=== PATIENT | female | born 1970 | race Caucasian/White ===

== ENCOUNTER → 2019-08-04 | Outpatient (CLI) | payer OTHER, SELFPAY ==
[2019-08-04 13:14] LABS: Cholesterol 199 mg/dL (200); Glucose 129 mg/dL (74-106); High Density Lipoprotein 40 mg/dL; T4 Free Direct 1.11 ng/dL (0.76-1.46); Thyroid Stim Hormone (TSH) 1.41 uIU/mL (0.358-3.74); Triglycerides 184 mg/dL; Very Low Density Lipoprotein 37 mg/dL (5-40)
== END | disposition home or self-care (01) ==
LOC: BFHLAB 08:04
PROVIDERS: Family Provider Family Medicine; PCP Family Medicine; Visit Provider Family Medicine
DX: F41.9 Anxiety disorder, unspecified (principal); F32.9 Major depressive disorder, single episode, unspecified; E66.9 Obesity, unspecified; Z13.1 Encounter for screening for diabetes mellitus; Z13.220 Encounter for screening for lipoid disorders
CPT/HCPCS: 36415; 80061; 82947; 84439; 84443

== ENCOUNTER 2019-11-11 07:13 | Day surgery (SDC) | payer OTHER, SELFPAY ==
--- NOTE | 2019-10-17 04:47 | HP_ITS ---
Intake Vital Signs 10/17/19 Height 5 ft 7 in 10/17/19 Weight: 235 lb 10/17/19 BMI 36.8 10/17/19 BP 152/85 H 10/17/19 Blood Pressure Location Rt brachial 10/17/19 Position Sitting 10/17/19 Respiration 18 10/17/19 Pulse 95 10/17/19 Pulse Source Monitor 10/17/19 Temp 97.7 F L 10/17/19 Temp Source Oral 10/17/19 Pulse Oximetry (%) 98 10/17/19 Oxygen Delivery Method room air Intake Visit Reasons: C-Scope Consult Chief Complaint: c-scope consult [employer] Required: No Is patient in pain?: No Allergies No Known Allergies Allergy (Unverified 10/17/19 15:52) Medications ibuprofen 200 mg capsule 200 mg PO Q6H PRN 10/17/19 [History Confirmed 10/17/19] PFSH Medical History Constipation (Acute) Diarrhea (Acute) Family history of colon cancer (Acute) Hemorrhoid (Acute) Rectal bleeding (Acute) Surgical History (Updated 10/17/19 @ 15:49 by Nubia Mart) History of (Acute) History of colonoscopy (Acute ~09/22/14) Family History (Updated 10/17/19 @ 15:50 by Nubia Mart) Mother Colon cancer Father Colon cancer Grandmother Colon cancer Grandfather CVA (cerebral vascular accident) Social History (Updated 10/17/19 @ 16:47 by Arnoldo Anton MD) Smoking Status: Never smoker alcohol intake: current alcohol intake frequency: a few times a month substance use type: does not use HPI HPI HPI: ALEXANDRO ESTRADA, is a 49 F who presents to the office today for HPI HPI Surgical H&P: Yes HPI: ALEXANDRO ESTRADA, is a 49 F who presents to the office today for surgical consultation regarding a personal history of intermittent rectal bleeding and a personal history of colon polyps and a strong family history of colon cancer Very pleasant 49-year-old female. 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 Recently the patient however is been doing elliptical and treadmill work and will have a feeling like her insides falling out with some bleeding on the tissue. She did have a colonoscopy 2013 done in [facility] and she was told there were polyps that were removed. She is not sure about the type or quantity. 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 She is suspecting that she has perhaps protruding hemorrhoids. The patient does note that she is overweight she is got a BMI of 36.8. She exercises routinely. Family history notable for mother had colon cancer. Her father had colon cancer and esophageal cancer and stomach cancer but he was a heavy tobacco user. Her paternal grandmother had colon cancer. She otherwise enjoys stable health. No current abdominal pain. No unexpected weight loss. No history of DVT. ROS General General: No weight change, appetite, fatigue, colon cancer, breast cancer or weakness HEENT HEENT: No difficulty swallowing, eye injury, eye surgery, swollen glands or hoarseness Endo Endocrine: No thyroid disease, diabetes mellitus, thyroid cancer, Hair loss, heat intolerance or cold intolerance Skin Skin: No rash or changing moles Breast Breast: No left breast lump, right breast lump, nipple discharge, breast pain, abnormal mammogram, abnormal US or breast enlargement Musc Musculoskeletal: No back problems, arthritis, rheumatoid arthritis, gout or joint pain Cardio Cardiovascular: No murmur, pacemaker, heart disease, atrial fibrillation, high blood pressure, heart attack, heart stent, palpitations, shortness of breat with exertion or chest pain Psych Psychiatric: No depression, anxiety or hearing voices Resp Respiratory: No shortness of breath, No sleep apnea, No cough, No COPD, No asthma, No emphysema, No wheezing Gastro Gastrointestinal: No abdominal pain, No nausea or vomiting, Yes diarrhea, Yes constipation, Yes blood in stool, No acid reflux, Yes hemorrhoids, No ulcers, No gallbladder problem, No black,tarry stools Timur Hematologic: No blood thinners, No blood disorders, No bleeding, No anemia, No blood clots Neuro Neurologic: No system reviewed and no additional complaints, except as docu, No as per HPI, No abnormal walking, No abnormal hearing, No abnormal movements, No abnormal speech, No behavioral changes, No burning sensations, No confusion, No seizure-like activity, No unsteadiness, No dizziness, No localized weakness, No frequent falls, No headache(s), No lack of coordination, No loss of vision, No memory loss, No numbness, No other visual disturbances, No radiating pain, No restless legs, No sensory deficit, No fainting, No tingling, No tremor(s), No weakness, No other Exam Const General: cooperative, healthy appearing, comfortable, no acute distress Nutritional Appearance: obese Orientation: alert, awake HENMT Head: normal to inspection Chest Breast Palpation: No nipple discharge Resp Effort & Inspection: normal respiratory effort Auscultation: clear to auscultation bilaterally Cardio Rate: regular rate Rhythm: regular rhythm Heart Sounds: no murmurs GI Palpation: soft, no hepatosplenomegaly Auscultation: normal bowel sounds Skin General: no rashes or lesions noted Neuro Cognition: normal cognition Extrem General: no calf tenderness bilaterally Psych Affect: normal affect Assessment & Plan Problems 1. Personal history of colonic polyps Z86.010 2. Family history of colon cancer in mother Z80.0 3. Family history of colon cancer in father Z80.0 Plan Family history of colon cancer in both parents as well as a paternal grandmother. Personal history of colon polyps. Some intermittent rectal bleeding. 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 Possible symptomatic hemorrhoids. I discussed treatment options with the patient. She states that she is an extraordinary abnormal gag reflex. We will try OsmoPrep. If not that possibly MiraLAX split prep. She has had an opportunity to ask and have questions answered as we have discussed the technique, benefit, risk, alternatives. We will schedule procedure at her discretion. Very careful perianal rectal inspection will be pursued in case further definitive treatment would be required. In addition the patient will try to release surgical information from her fistula surgery that was performed in [facility] I appreciate the opportunity of assisting with her surgical care Cc: Dr. Seth Anton M.D., F.A.C.S. Coding Level of Care Code Off vis,new,level 3 Diagnoses Personal history of colonic polyps Z86.010 Family history of colon cancer in mother Z80.0 Family history of colon cancer in father Z80.0 10/17/19 2934 <Electronically signed by Arnoldo giron MD> Date _ Arnoldo Anton MD I have re-examined the patient. There are no clinical changes since date of exam.
[2019-10-17 15:51] VITALS: BMI 36.8
[2019-11-11 07:30] VITALS: BP 145/70; PULSE 96; RESP 15; TEMP 36.8; O2SAT 99; BMI 36.3
[2019-11-11] MEDS: Lactated Ringers 1,000 ML 100 ML IV (07:41)
[2019-11-11 08:54] VITALS: BP 137/69; BP 145/70; PULSE 99; RESP 14; TEMP 36.7; O2SAT 97
[2019-11-11 08:55] VITALS: BP 143/65; BP 145/70; PULSE 100; RESP 16; O2SAT 98
--- NOTE | 2019-11-11 08:55 | OP.COLON_ITS ---
Patient Name: Whit Jon Procedure Date: 11/11/2019 8:31 AM Date of : 1970 Age: 49 Procedure: Colonoscopy Indications: High risk colon cancer surveillance: Personal history of colonic polyps Providers: Arnoldo Anton MD Referring MD: Seth Resendiz Medicines: See the Anesthesia note for documentation of the administered medications Patient Profile: Last Colonoscopy: September 2014. Complications: No immediate complications. Procedure: Pre-Anesthesia Assessment: - Prior to the procedure, a History and Physical was performed, and patient medications and allergies were reviewed. The patient's tolerance of previous anesthesia was also reviewed. The risks and benefits of the procedure and the sedation options and risks were discussed with the patient. All questions were answered, and informed consent was obtained. Prior Anticoagulants: The patient has taken no previous anticoagulant or antiplatelet agents. ASA Grade Assessment: II - A patient with mild systemic disease. After reviewing the risks and benefits, the patient was deemed in satisfactory condition to undergo the procedure. After I obtained informed consent, the scope was passed under direct vision. Throughout the procedure, the patient's blood pressure, pulse, and oxygen saturations were monitored continuously. The colonoscope was introduced through the anus and advanced to the cecum, identified by appendiceal orifice and ileocecal valve. The colonoscopy was performed without difficulty. The patient tolerated the procedure well. The quality of the bowel preparation was fair. The ileocecal valve and the appendiceal orifice were photographed. Scope In: 8:34:42 AM Scope Withdrawal Time 0 hours 7 minutes 4 seconds Scope Out: 8:47:30 AM Total Procedure Duration Time 0 hours 12 minutes 48 seconds Findings: The digital rectal exam findings include anal fissure and internal hemorrhoids that prolapse with straining, but spontaneously regress to the resting position (Grade II). Pertinent negatives include normal sphincter tone. The colon (entire examined portion) appeared normal. Impression: - Preparation of the colon was fair. - Anterior Anal fissure seemingly healed with some scar tissue, no bleeding Internal hemorrhoids that prolapse with straining, but spontaneously regress to the resting position (Grade II) found on digital rectal exam. - The entire examined colon is normal. - No specimens collected. Recommendation: - Discharge patient to home. - Resume previous diet. - Continue present medications. - Await pathology results. - Repeat colonoscopy in 5 years for surveillance. Procedure Code(s): --- Professional --- 33411, Colonoscopy, flexible; diagnostic, including collection of specimen(s) by brushing or washing, when performed (separate procedure) Diagnosis Code(s): --- Professional --- Z86.010, Personal history of colonic polyps K64.1, Second degree hemorrhoids K60.2, Anal fissure, unspecified CPT copyright 2017 [employer]. All rights reserved. The codes documented in this report are preliminary and upon remote inpatient coder review may be revised to meet current compliance requirements. Arnoldo Anton MD 11/11/2019 8:54:40 AM This report has been signed electronically. Number of Addenda: 0 Note Initiated On: 11/11/2019 8:31 AM
--- NOTE | 2019-11-11 08:55 | OP.CCLET_ITS ---
11/11/2019 Seth Resendiz Re : Colonoscopy procedure for Whit Gordonr Martín This procedure was performed on Monday, November 11, 2019. My impressions and recommendations are as follows: Impressions : - Preparation of the colon was fair. - Anterior Anal fissure seemingly healed with some scar tissue, no bleeding Internal hemorrhoids that prolapse with straining, but spontaneously regress to the resting position (Grade II) found on digital rectal exam. - The entire examined colon is normal. - No specimens collected. Recommendations : - Discharge patient to home. - Resume previous diet. - Continue present medications. - Await pathology results. - Repeat colonoscopy in 5 years for surveillance. My findings are described in the full procedure note, which is enclosed. If I can be of further assistance, please feel free to contact me at Doctor phone number(s): Work: . Sincerely, Arnoldo Anton MD 11/11/2019 8:54:40 AM This report has been signed electronically.
[2019-11-11 09:00] VITALS: BP 130/72; BP 145/70; PULSE 92; RESP 16; O2SAT 97
[2019-11-11 09:01] VITALS: BP 136/82; BP 145/70; PULSE 89; RESP 16; TEMP 36.1; O2SAT 98
[2019-11-11 09:40] VITALS: BP 145/70
== END 2019-11-11 09:40 | disposition home or self-care (01) ==
LOC: EN 07:14 → AC 07:17
PROVIDERS: Family Provider Family Medicine; PCP Family Medicine; Referring Provider Family Medicine; Visit Provider Surgery
PROC: 0DJD8ZZ Inspection of Lower Intestinal Tract, Via Natural or Artificial Opening Endoscopic (ICD-10-PCS; CPT 45378; principal; 2019-11-11 08:10)
DX: Z12.11 Encounter for screening for malignant neoplasm of colon (principal); K60.2 Anal fissure, unspecified; K64.1 Second degree hemorrhoids; Z80.0 Family history of malignant neoplasm of digestive organs; Z86.010 Personal history of colon polyps; E66.9 Obesity, unspecified; Z68.36 Body mass index [BMI] 36.0-36.9, adult
CPT/HCPCS: 45378; J7120; J2405

== ENCOUNTER → 2021-06-19 16:06 | Outpatient (CLI) | payer OTHER, SELFPAY ==
--- NOTE | 2021-06-19 16:13 | US_ITS ---
STUDY: THYROID ULTRASOUND REASON FOR EXAM: Female, 51 years old. THYROMEGALY TECHNIQUE: Ultrasound evaluation of the thyroid was performed with real-time and static razo-scale imaging. COMPARISON: None. FINDINGS: RIGHT LOBE: The right lobe of the thyroid gland measures 6.9 x 2.0 x 2.2 cm. There is a heterogeneous echotexture. 1.5 x 1.2 x 0.8 cm mixed cystic and solid nodule. 1.1 x 0.8 x 0.4 cm solid hypoechoic nodule. 0.8 x 0.8 x 0.4 cm cystic nodule. 1.1 x 1.0 x 0.6 cm cyst. All nodules have regular margins and perivalvular nodular vascularity. LEFT LOBE: The left lobe of the thyroid gland measures 6.5 x 1.9 x 2.2 cm. There is a heterogeneous echotexture. 1.2 x 0.8 x 0.8 cm hypoechoic solid nodule. 0.5 x 0.5 x 0.4 cm cystic nodule. 0.7 x 0.7 x 0.5 cm cystic nodule. 0.9 X 0.8 x 0.7 cm cystic nodule. All nodules have regular margins and a nodular vascularity. ISTHMUS: The isthmus measures 5 mm. US/Thyroid IMPRESSION: Thyromegaly. TI-RADS 3 nodule in the right thyroid lobe measures up to 1.5 cm. Follow-up ultrasound in one year. Electronically Signed: Paresh Dumont MD at 23:28 EDT Tel , Service support ,
== END ==
PROVIDERS: PCP Family Medicine; Referring Provider Family Medicine; Visit Provider Family Medicine
DX: E04.9 Nontoxic goiter, unspecified (principal)
CPT/HCPCS: 76536

== ENCOUNTER → 2021-07-31 | Outpatient (CLI) | payer OTHER, SELFPAY | END | disposition home or self-care (01) | LOC: LABSPEC 08-01 06:39 | PROVIDERS: PCP Family Medicine; Referring Provider Family Medicine; Visit Provider Family Medicine | DX: U07.1 COVID-19 (principal) | CPT/HCPCS: 87635; U0005; U0003 ==

== ENCOUNTER → 2022-04-15 | Outpatient (CLI) | payer OTHER, SELFPAY ==
[2022-04-22 10:16] LABS: Age Gdln ACOG Testing 30-65 (.); HPV Genotype 16, Aptima Negative (Negative)
[2022-04-22 10:31] LABS: HPV APTIMA, High Risk Positive (Negative); HPV Genotype 18,45 Aptima Negative (Negative)
[2022-05-07 20:26] LABS: HPV Reflexed? YES, CHARGE PATIENT
== END | disposition home or self-care (01) ==
LOC: LABSPEC 14:56
PROVIDERS: PCP Family Medicine; Referring Provider Family Medicine; Visit Provider Family Medicine
DX: Z12.4 Encounter for screening for malignant neoplasm of cervix (principal)
CPT/HCPCS: 87624; 88175; G0145

== ENCOUNTER → 2022-04-23 | Outpatient (CLI) | payer OTHER, SELFPAY ==
--- NOTE | 2022-04-23 15:03 | US_ITS ---
STUDY: ULTRASOUND OF THE FEMALE PELVIS - COMPLETE REASON FOR EXAM: Female, 52 years old.. Enlarged uterus. Heavy menses for years. LMP: 04/17/2022. TECHNIQUE: Transabdominal TECHNICAL QUALITY: Adequate. COMPARISON: None. FINDINGS: The uterus is anteverted and is in a midline position. The uterus measures 10.4 x 6.0 x 4.2 cm. Normal uterine cervix. The endometrium measures 0.4 mm in thickness, and is hyperechoic. There is no demonstrated endometrial mass. There is no demonstrated myometrial mass. I.U.D. - The patient does not have an I.U.D. The right ovary is visualized. The right ovary measures 2.6 x 3.2 x 2.0 cm. There is no right ovarian cyst or ovarian mass. There is no visualized right adnexal mass or complex lesion. There is normal arterial and normal venous vascularity. The left ovary is visualized. The left ovary measures 2.9 x 2.8 x 1.3 cm. There is no left ovarian cyst or ovarian mass. There is no visualized left adnexal mass or complex lesion. There is normal arterial and normal venous vascularity. There is no fluid in the cul-de-sac. The pre void volume of the bladder was 573 ml. The urinary bladder appears grossly normal. Polycystic ovary disease: No. US/Pelvic (Non ) IMPRESSION: Normal female pelvis. Electronically Signed: Jorje Martin DO at 18:51 EDT ,
== END | disposition home or self-care (01) ==
PROVIDERS: PCP Family Medicine; Visit Provider Family Medicine
DX: N85.2 Hypertrophy of uterus (principal)
CPT/HCPCS: 76856

== ENCOUNTER → 2023-03-23 | Outpatient (CLI) | payer OTHER, SELFPAY ==
[2023-03-23 12:22] LABS: Absolute Lymphocyte Count 2.21 X10^3/uL (0.83-4.51); Absolute Neutrophil Count 5.6 X10^3/uL (2.0-7.7); Basophil# 0.05 X10^3/uL; Basophil% 0.6 % (0-1); Eosinophils% 1.2 % (0-5); Hematocrit 40.3 % (37-47); Hemoglobin 12.3 g/dL (12.0-15.0); Lymphocyte # 2.21 X10^3/ul (0.83-4.51); Lymphocyte % 25.7 % (19-41); Mean Corp Hgb Conc 30.5 g/dL (32-36); Mean Corpuscular Hgb 25.4 pg (27.0-32.0); Mean Corpuscular Volume 83.1 fL (81-99); Mean Platelet Vol. 9.3 fl (6.2-12.0); Monocyte# 0.55 X10^3/uL; Monocyte% 6.4 % (0-10); NRBC Flagged by Analyzer 0 % (0-5); Neutrophil # 5.64 X10^3/uL (2.7-7.7); Neutrophil % 65.5 % (47-70); Platelet Count 370 K/mm3 (150-450); RBC Distribution Width CV 14.3 % (11.6-14.6); RBC Distribution Width SD 43.2 fl (35.1-43.9); Red Blood Count 4.85 M/mm3 (4.2-5.4); White Blood Count 8.6 K/mm3 (4.4-11.0)
[2023-03-23 13:03] LABS: Hemoglobin A1c 7.7 % (3.8-5.6)
[2023-03-23 13:18] LABS: Microalbumin,Random Urine 26.3 mg/L (NO RANGE EST.); Microalbumin:Creatinine Ratio 8.8 mg/g CRE (<30 mg/g CRE)
[2023-03-23 13:35] LABS: ALB/GLOB Ratio 0.8 RATIO (0.9-2.4); AST(SGOT) 26 U/L (15-37); Alanine Aminotransfer ALT/SGPT 28 U/L (13-56); Albumin, Serum 3.3 g/dL (3.2-5.0); Alkaline Phosphatase 104 U/L (45-117); Anion Gap 7 (5-15); BUN 10 mg/dL (7-18); BUN/Creat Ratio 14.1 RATIO (10-20); Calcium,Total 9.3 mg/dL (8.5-10.1); Chloride 104 mmol/L (98-107); Cholesterol 204 mg/dL (200); Creatinine, Serum 0.71 mg/dL (0.55-1.02); EST Glomerular Filtration Rate 92 mL/min (>60); Est Glom Filt Rate - Afr Amer 111 mL/min (>60); Globulin 4.2 g/dL (2.2-4.2); Glucose 168 mg/dL (74-106); High Density Lipoprotein 42 mg/dL; Potassium 4.1 mmol/L (3.5-5.1); Protein, Total 7.5 g/dL (6.4-8.2); Sodium Level 137 mmol/L (136-145); Thyroid Stim Hormone (TSH) 1.24 uIU/mL (0.358-3.74); Triglycerides 148 mg/dL; Very Low Density Lipoprotein 30 mg/dL (5-40)
== END | disposition home or self-care (01) ==
LOC: BFHLAB 08:41
PROVIDERS: Obstetrics & Gynecology; PCP Family Medicine; Referring Provider Family Medicine; Visit Provider Family Medicine
DX: I10 Essential (primary) hypertension (principal); E11.9 Type 2 diabetes mellitus without complications; E04.2 Nontoxic multinodular goiter; N92.1 Excessive and frequent menstruation with irregular cycle; N93.9 Abnormal uterine and vaginal bleeding, unspecified
CPT/HCPCS: 36415; 80053; 80061; 82043; 82570; 83036; 84443; 85025

== ENCOUNTER → 2023-03-30 | Outpatient (CLI) | payer OTHER, SELFPAY ==
--- NOTE | 2023-03-30 | EMB_PTH ---
PATIENT: ALEXANDRO ESTRADA LOC: [facility] U#:[id number] AGE/SX: 53/F ROOM: RE03/30/[address]: Dr. Danna Wood MD : 1970 BED: DIS: 03/30/2023 SPEC #: [id number] RECD: 03/30/23 13:00 STATUS: RADHA ABDULLAHI #: [id number] RIOS: 03/30/23 00:[address]: Danna Wood DEPT: SURGICAL PATHOLOGY RECD BY: Angus Nolasco ENTERED: 03/30/23 13:00 SP TYPE: ENDOM BX/C LIO DR: Dr. India Samuel MD Tissues: Endometrium, NOS Procedures: Surgery Specimen Level IV HEADER OPERATION: Endometrial biopsy PRE-OP DIAGNOSIS: Abnormal uterine bleeding TISSUE SUBMITTED: Endometrial lining MICROSCOPIC DIAGNOSIS Endometrium, biopsy: Secretory endometrium. Focal benign stromal hyperplasia. AM:reina 03/31/2023 MICROSCOPIC DESCRIPTION Slides are reviewed. GROSS DESCRIPTION Received is one container labeled with the patient's name and not further designated. The specimen consists of multiple irregular fragments of pink-cameron soft tissue that in aggregate measure 2.0 x 1.0 x 0.1 cm. The specimen is totally submitted in one cassette. / AM:reina 03/30/2023 TC:5 CPT: 16800
== END | disposition home or self-care (01) ==
LOC: LABSPEC 11:46
PROVIDERS: PCP Family Medicine; Visit Provider Obstetrics & Gynecology
DX: N85.00 Endometrial hyperplasia, unspecified (principal)
CPT/HCPCS: 88305

== ENCOUNTER → 2023-05-07 | Outpatient (CLI) | payer OTHER, SELFPAY ==
--- NOTE | 2023-05-07 14:24 | BI_ITS ---
MAMMOGRAPHY - BILATERAL SCREENING REASON FOR EXAM: Female, 53 years old. Routine annual screening examination. PERTINENT HISTORY: Non-contributory. TECHNIQUE: Digital bilateral breast bobo (3D mammographic acquisition) in the CC and MLO projections. 2-D mediolateral oblique (MLO) and craniocaudad (CC) views of both breasts were obtained. CAD: Full Field Digital Mammography with Computer Added Detection was performed. COMPARISON: None. Baseline examination. FINDINGS: Breast Composition: There are scattered areas of fibroglandular density. There are no dominant masses or suspicious calcifications. No other significant abnormalities are identified. BI/SCRN MAMM (CAD)W/BOBO BILAT IMPRESSION: Negative screening mammogram. Yearly followup mammogram recommended. (A) ASSESSMENT CATEGORY: BIRADS Category 1: Negative. A letter regarding these results will be sent to the patient by the facility within 30 days. Approximately 10% of breast cancers are not detected by mammography. A normal mammogram should not delay biopsy of a clinically suspicious abnormality. [id number] Electronically Signed: Corey Au MD at 15:18 EDT ,
== END | disposition home or self-care (01) ==
LOC: OPBI 14:23
PROVIDERS: PCP Family Medicine; Referring Provider Family Medicine; Visit Provider Family Medicine
DX: Z12.31 Encounter for screening mammogram for malignant neoplasm of breast (principal)
CPT/HCPCS: 77063; 77067

== ENCOUNTER → 2023-05-14 | Outpatient (CLI) | payer OTHER, SELFPAY ==
[2023-05-20 15:08] LABS: HPV APTIMA, High Risk Negative (Negative)
== END | disposition home or self-care (01) ==
PROVIDERS: PCP Family Medicine; Visit Provider Obstetrics & Gynecology
DX: Z12.4 Encounter for screening for malignant neoplasm of cervix (principal)
CPT/HCPCS: 87624; 88175; G0145

== ENCOUNTER → 2024-05-12 | Outpatient (CLI) | payer OTHER, SELFPAY ==
--- NOTE | 2024-05-12 15:04 | BI_ITS ---
MAMMOGRAPHY - BILATERAL SCREENING REASON FOR EXAM: Female, 54 years old. Routine annual screening examination. PERTINENT HISTORY: Non-contributory. TECHNIQUE: Digital bilateral breast bobo (3D mammographic acquisition) in the CC and MLO projections. 2-D mediolateral oblique (MLO) and craniocaudad (CC) views of both breasts were obtained. CAD: Full Field Digital Mammography with Computer Added Detection was performed. COMPARISON: Comparison is made with prior study dated May 07, 2023. FINDINGS: Breast Composition: There are scattered areas of fibroglandular density. There are no dominant masses or suspicious calcifications. No other significant abnormalities are identified. There has been no significant change since the prior study. BI/SCRN MAMM (CAD)W/BOBO BILAT IMPRESSION: Stable bilateral screening mammogram. Yearly follow-up mammogram recommended. (A) ASSESSMENT CATEGORY: BIRADS Category 1: Negative. A letter regarding these results will be sent to the patient by the facility within 30 days. Approximately 10% of breast cancers are not detected by mammography. A normal mammogram should not delay biopsy of a clinically suspicious abnormality. [id number] Electronically Signed: Corey Au MD at 8:23 EDT ,
== END | disposition home or self-care (01) ==
LOC: OPBI 15:02
PROVIDERS: PCP Family Medicine; Referring Provider Family Medicine; Visit Provider Family Medicine
DX: Z12.31 Encounter for screening mammogram for malignant neoplasm of breast (principal)
CPT/HCPCS: 77063; 77067

== ENCOUNTER → 2024-08-03 | Outpatient (CLI) | payer OTHER, SELFPAY ==
--- OUTSIDE RECORDS SUMMARY | 2024-08-03 11:30 | XMS RPT_ITS | CCD ---
Author Organization [facility] Care Team Providers Care Salon/Spa Manager Name Role Phone Dhaval Sandoval DO Ra Primary Care Provider Allergies Allergy Classification Reported Allergen(s) Allergy Type Date of Onset Reaction(s) Facility (2 sources) environmental [Other] Propensity to adverse reactions [facility] Work Phone: Medications Completed/Discontinued Medications Medication Drug Class(es) Dates Sig (Normalized) Sig (Original) ibuprofen 800 mg oral tablet (2 sources) Nonsteroidal Anti-inflammatory Drug Start: 10-01-2012 take 1 tablet by mouth every eight hours as needed ibuprofen (MOTRIN) 800 mg tablet Take 1 tablet by mouth every 8 hours as needed (migraine). FOR PAIN. TAKE WITH FOOD. 0 10/01/2012 Active Comment on above: Take 1 tablet by austyn th every 8 hours as needed (migraine). FOR PAIN. TAKE WITH FOOD. ketorolac tromethamine 10 mg oral tablet (2 sources) Nonsteroidal Anti-inflammatory Drug, Cyclooxygenase Inhibitor Start: 06-05-2018 take 1 tablet by mouth every six hours as needed for pain ketorolac (TORADOL) 10 mg tablet Indications: Other migraine without status migrainosus, intractable Take 1 tablet by mouth every 6 hours as needed for Pain. 10 tablet 3 06/05/2018 Active Comment on above: Take 1 tablet by austyn th every 6 hours as needed for Pain. Problems Active Problems Problem Classification Problem Date Documented Da te Episodic/Chronic Disorders of lipid metabolism (2 sources) Mixed hyperlipidemia; Translations: [Mixed hyperlipidemia] Onset: 11-27-2005 11-27-2005 Chronic Headache; including migraine (6 sources) Migraine; Translations: [Migraine, unspecified, not intractable, without status migrainosus] Onset: 06-07-2018 03-02-2008 Chronic Mood disorders (2 sources) Recurrent major depressive episodes; Translations: [Major depressive disorder, recurrent, unspecified] 03-02-2008 Chronic Other nutritional; endocrine; and metabolic disorders (2 sources) Body mass index 40+ - severely obese; Translations: [Morbid (severe) obesity due to excess calories] 02-05-2018 Chronic Other nutritional; endocrine; and metabolic disorders (2 sources) Body mass index 30+ - obesity; Translations: [Obesity, unspecified] Onset: 02-07-2013 02-07-2013 Chronic Other nutritional; endocrine; and metabolic disorders (2 sources) Obese class II; Translations: [Obesity, unspecified] Onset: 06-07-2018 06-07-2018 Chronic Other upper respiratory disease (2 sources) Allergic rhinitis; Translations: [Other allergic rhinitis] 03-02-2008 Chronic Past or Other Problems Problem Classification Problem Date Documented Da te Episodic/Chronic Anal and rectal conditions (2 sources) Anal fistula; Translations: [Anal fistula] Onset: 07-17-2014 07-17-2014 Episodic Conditions associated with dizziness or vertigo (2 sources) Benign paroxysmal positional vertigo; Translations: [Benign paroxysmal vertigo, unspecified ear] Onset: 11-07-2015 11-07-2015 Episodic Diabetes mellitus without complication (2 sources) Impaired fasting glycemia; Translations: [Impaired fasting glucose] Onset: 06-07-2018 06-07-2018 Episodic Results Test Name Value Interpretation Reference Range Nadine Watkins 04-24-2022 [facility] HNO ID: [id number] Author: Mammography Coordinator Service: ? Author Type: Physician Type: Letter Filed: 04/28/2022 11:34 PM Note Text: April 24, 2022 PID: [id number] Whit Jon [id number] [place] [address] Dear Ms. Jon, We are pleased to inform you that the results of your recent breast imaging exam on 04/24/2022 are normal. Early detection of cancer is very important. We also understand recommendations regarding breast cancer screening are controversial. Please discuss with your primary care provider which strategy is best for you and whether a mammogram is right for you. Your imaging studies and report will be kept on file at [facility] as part of your permanent medical record and are available for your continuing care. Thank you for allowing us to help in meeting your health care needs. Sincerely, Dr. Pack Interpreting Radiologist [facility] (Normal over 40) Normal [facility] SCREENING W TOMOon 04-24 MANNY SCREENING W BOBO * * *Final Report* * * DATE OF EXAM: Apr 24 2022 3:01PM [id number] - MANNY SCREENING W BOBO / PROCEDURE REASON: screening * * * * Physician Interpretation * * * * RESULT: #[id number] - MANNY SCREENING W BOBO BILATERAL DIGITAL SCREENING MAMMOGRAM TOMOSYNTHESIS WITH CAD: 04/24/2022 HISTORY: Screening /Screening Mammogram-Patient reports NO symptoms. /priors available for comparison. RESULT: TECHNIQUE: The study was acquired using full field digital technology and interpreted from soft copy. Digital Breast Tomosynthesis (DBT) images were obtained and used to assist in the interpretation of this examination. Current study was also evaluated with a Computer Aided Detection (CAD). Comparison is made to exams dated: 03/05/2021 mammogram, 02/10/2020 mammogram - [facility], 11/02/2018 mammogram, and 10/27/2017 mammogram - [facility]. There are scattered fibroglandular elements in both breasts. No significant masses, calcifications, or other findings are seen in either breast. There has been no significant interval change. IMPRESSION: NEGATIVE There is no mammographic evidence of malignancy. A 1 year screening mammogram is recommended. Candy Pack M.D., jr/penrad:04/24/2022 17:59:14 Vending Attendant(s): Lois Perez, [facility] letter sent: Normal over 40 Mammogram BI-RADS: 1 Negative Multiple national specialty organizations have released breast cancer screening guidelines for women at average risk for developing breast cancer - guidelines that are based on both evidence and opinion, yet differ on when to start and how often to screen for breast cancer. With representation from Breast Imaging, Internal Medicine, Women's Health, Family Medicine, and Medical/Surgical Oncology, the [facility] has carefully reviewed the data and reached the following consensus: 1) All women should engage in shared decision-making with their providers to decide when to start and how often to screen; 2) All women should have the opportunity to start screening mammography at age 40; 3) For women ages 45-55, we recommend annual screening mammograms; 4) For women ages 55 and over, we support both the transition from an annual to a biennial interval if this aligns more with patient's values and preferences, or continuation with annual screening; 5) All women should discuss with their providers when to stop screening mammograms. Service Shop Foreman: Xenia Transcribe Date/Time: Apr 24 2022 2:48P Dictated by: CANDY PACK MD This examination was interpreted and the report reviewed and electronically signed by: CANDY PACK MD on Apr 24 2022 5:59PM EST [id number] Normal [facility] ic Encounters Encounter Date Encounter Type Care Provider Facility Start: 04-24-2022 End: 04-24-2022 Subsequent hospital visit by physician Screen Mammo On License Of [facility] Mammogram Start: 04-24-2022 Documentation procedure Mammog sylvia Coordinator [facility] Start: 04-24-2022 Letter encounter Mammography Coordinator [facility] Department Start: 06-07-2018 Patient encounter status Screen Wstr [facility] Work Phone: Procedures Date Procedure Procedure Detail Performing Clinician Start: 04-24-2022 MANNY SCREENING W BOBO Cc f Provider Start: 04-24-2022 Mammography Screen Wst r Plan of Treatment Date Care Activity Detail Author Start: 04-24-2023 Mammography MAMMOGRAM [facility] Start: 10-27-2022 Urine microalbumin profile DTA P,TDAP,TD (3 - Td or Tdap) [facility] Start: 06-12-2022 Influenza vaccination INFLUENZA (#1) [facility] Start: 06-19-2021 HPV TESTING HPV TESTING [facility] Start: 06-19-2021 PAP TESTING PAP TESTING [facility] Start: 05-29-2021 DIABET[facility]CREEN [facility] Start: 2021 SHINGRIX VACCINE (1 of 2) SHINGRIX V ACCINE (1 of 2) [facility] Start: 10-02-2017 LIPID SCREEN LIPID SCREEN [facility] Start: 01-25-2016 COLOGUARD (FIT-DNA) COLOGUARD (FIT-D NA) [facility] Start: 01-25-2016 Colonoscopy COLONOSCOPY [facility] Start: 01-25-2016 COLORECTAL CANCER SCREENING COLORECTAL CANCER SCREENING [facility] Start: 01-25-[address] [facility] Start: 01-25-2016 FECAL OCCULT BLOOD FECAL OCCULT BLOO D [facility] Start: 01-25-2016 SIGMOIDOSCOPY SIGMOIDOSCOPY [facility] Start: 1989 HEPATITIS C SCREENING HEPATITIS C SC REENING [facility] Start: 1989 HIV SCREENING HIV SCREENING [facility] Start: 1971 COVID-19 VACCINE (#1) COVID-19 VACCI NE (#1) [facility] Immunizations Immunization Date Immunization Notes Care Provider Fa cility 10-27-2012 tetanus toxoid, redu mohit diphtheria toxoid, and acellular pertussis vaccine, adsorbed Screen [facility] Work Phone: 05-17-2002 diphtheria and tetan us toxoids, adsorbed for pediatric use Screen [facility] Work Phone: Payers Date Payer Category Payer Unknown MMO MMO [employer] [id number] 2014-Present [phone] [address] [place] [address] PPO [id number] Social History Date Type Detail Facility Tobacco smoking stat us VAIS Never smoked tobacco [facility] Start: 11-02-2018 Alcohol intake Current drinke r of alcohol (finding) [facility] Start: 03-02-2008 History SDOH Alcohol Comment 1-2 times per month [facility] Start: 1970 Sex Assigned At Female C [facility] Start: 04-14-2022 End: 04-24-2022 Exposure to SARS-CoV-2 (event) Not sure [facility] Note 04-24-2022 Letter - Mammography Coordinator - 04/24/2022 5:59 PM EDT Note Date & Type Note Facility 04-24-2022 Miscellaneous Notes April 24, 2022 PID: [id number] Whit Jon [address] [place] [address] Dear Ms. Jon, We are pleased to inform you that the results of your recent breast imaging exam on 04/24/2022 are normal. Early detection of cancer is very important. We also understand recommendations regarding breast cancer screening are controversial. Please discuss with your primary care provider which strategy is best for you and whether a mammogram is right for you. Your imaging studies and report will be kept on file at [facility] as part of your permanent medical record and are available for your continuing care. Thank you for allowing us to help in meeting your health care needs. Sincerely, Dr. Pack Interpreting Radiologist [facility] (Normal over 40) documented in this encounter [facility] Progress note 04-24-2022 Note Date & Type Note Facility 04-24-2022 Note HNO ID: [id number] Author: RT Benjy(R) Service: ? Author Type: Technologist Type: Progress Notes Filed: 04/24/2022 2:29 PM Note Text: Radiology Service Progress Note PATIENT NAME: Whit Jon DATE OF SERVICE: April 24, 2022 TIME: 2:29 PM PATIENT IDENTITY VERIFICATION COMPLETED USING TWO (2) IDENTIFIERS: Name and Date of confirmed by patient verbally. FALL SCREENING: Has the patient had 2 falls in the last year or 1 fall with injury or currently using an Ambulatory Assistive Device (Walker, Cane, Wheelchair, Crutches, etc.)? No PATIENT GENDER DATA: Female. status: : No status: NO. PATIENT RELEVANT IMPLANT DATA REVIEWED: Not Applicable RADIOLOGY DEPARTMENT: Mammography PERIPHERAL IV DATA: Not applicable SIGNED BY: RT Benjy(R) April 24, 2022 2:29 PM [facility] History of Present illness Narrative 04-24-2022 RT Benjy(R) - 04/24/2022 2:30 PM EDT Note Date & Type Note Facility 04-24-2022 History of Presen t illness Narrative Radiology Service Progress Note PATIENT NAME: Whit Jon DATE OF SERVICE: April 24, 2022 TIME: 2:29 PM PATIENT IDENTITY VERIFICATION COMPLETED USING TWO (2) IDENTIFIERS: Name and Date of confirmed by patient verbally. FALL SCREENING: Has the patient had 2 falls in the last year or 1 fall with injury or currently using an Ambulatory Assistive Device (Walker, Cane, Wheelchair, Crutches, etc.)? No PATIENT GENDER DATA: Female. status: : No status: NO. PATIENT RELEVANT IMPLANT DATA REVIEWED: Not Applicable RADIOLOGY DEPARTMENT: Mammography PERIPHERAL IV DATA: Not applicable SIGNED BY: RT Benjy(R) April 24, 2022 2:29 PM documented in this encounter [facility] History of Past illness Narrative 10-01-2012 Note Date & Type Note Facility 10-01-2012 History of Past i llness Narrative Problem Noted Date Resolved Date Bulimia nervosa 10/01/2012 documented as of this encounter (statuses as of 04/25/2022) [facility] History of Past illness Narrative 10-01-2012 Note Date & Type Note Facility 10-01-2012 History of Past i llness Narrative Problem Noted Date Resolved Date Bulimia nervosa 10/01/2012 documented as of this encounter (statuses as of 04/26/2022) [facility] Summary Purpose Family History No Family History Records Found Advance Directives No Advanced Directives Records Found Additional Source Comments Source Comments (unrecognize d section and content) In the event this informatio n is protected by the Federal Confidentiality of Alcohol and Drug Abuse Patient Records regulations: The Federal rules restrict any use of the information to criminally investigate or prosecute any alcohol or drug abuse patient.[facility] the event this information is protected by the Federal Confidentiality of Alcohol and Drug Abuse Patient Records regulations: The Federal rules restrict any use of the information to criminally investigate or prosecute any alcohol or drug abuse patient.[facility] Care Teams (unrecognized sec tion and content) Salon/Spa Manager Relationship Specialty Start Date End Date Dhaval Sandoval, [address] [place], [place] [id number] PCP - General Family Practice 10/27/12 Salon/Spa Manager Relationship Specialty Start Date End Date Dhaval Sandoval, [address] [place], [place] [id number] PCP - General Family Practice 10/27/12 INFORMATION SOURCE (unrecogn ized section and content) DATE CREATED AUTHOR 05/01/2022 [facility] FOR RECORDS PERTAINING TO PATIENTS WHO ARE OR HAVE BEEN ENROLLED IN A CHEMICAL DEPENDENCY/SUBSTANCEABUSE PROGRAM, SOME INFORMATION MAY BE OMITTED. This clinical summary was aggregated from multiple sources. Caution should be exercised in using it in the provision of clinical care. This summary normalizes information from multiple sources, and as a consequence, information in this document may materially change the coding, format and clinical context of patient data. In addition, data may be omitted in some cases. CLINICAL DECISIONS SHOULD BE BASED ON THE PRIMARY CLINICAL RECORDS. [facility] [employer] [facility]. provides no warranty or guarantee of the accuracy or completeness of information in this document.
[2024-08-03 12:21] LABS: Absolute Lymphocyte Count 2.66 X10^3/uL (0.83-4.51); Absolute Neutrophil Count 5.5 X10^3/uL (2.0-7.7); Basophil# 0.07 X10^3/uL; Basophil% 0.8 % (0-1); Eosinophil# 0.21 X10^3/uL; Eosinophils% 2.3 % (0-5); Hematocrit 43.8 % (37-47); Hemoglobin 14.4 g/dL (12.0-15.0); Lymphocyte # 2.66 X10^3/ul (0.83-4.51); Lymphocyte % 29.3 % (19-41); Mean Corp Hgb Conc 32.9 g/dL (32-36); Mean Corpuscular Hgb 28.1 pg (27.0-32.0); Mean Corpuscular Volume 85.4 fL (81-99); Mean Platelet Vol. 9.7 fl (6.2-12.0); Monocyte# 0.63 X10^3/uL; Monocyte% 6.9 % (0-10); NRBC Flagged by Analyzer 0 % (0-5); Neutrophil # 5.46 X10^3/uL (2.7-7.7); Neutrophil % 60.3 % (47-70); Platelet Count 325 K/mm3 (150-450); RBC Distribution Width CV 13.6 % (11.6-14.6); RBC Distribution Width SD 42.4 fl (35.1-43.9); Red Blood Count 5.13 M/mm3 (4.2-5.4); White Blood Count 9.1 K/mm3 (4.4-11.0)
[2024-08-03 12:38] LABS: ALB/GLOB Ratio 0.9 RATIO (0.9-2.4); AST(SGOT) 18 U/L (15-37); Alanine Aminotransfer ALT/SGPT 26 U/L (13-56); Albumin, Serum 3.6 g/dL (3.2-5.0); Alkaline Phosphatase 93 U/L (45-117); Anion Gap 6 (5-15); BUN 10 mg/dL (7-18); Calcium,Total 9.6 mg/dL (8.5-10.1); Chloride 103 mmol/L (98-107); Cholesterol 214 mg/dL (200); Creatinine, Serum 0.67 mg/dL (0.55-1.02); EST Glomerular Filtration Rate 98 mL/min (>60); Est Glom Filt Rate - Afr Amer 119 mL/min (>60); Globulin 4.1 g/dL (2.2-4.2); Glucose 136 mg/dL (74-106); High Density Lipoprotein 42 mg/dL; Potassium 4.2 mmol/L (3.5-5.1); Protein, Total 7.7 g/dL (6.4-8.2); Sodium Level 135 mmol/L (136-145); Triglycerides 188 mg/dL; Very Low Density Lipoprotein 38 mg/dL (5-40)
== END | disposition home or self-care (01) ==
PROVIDERS: PCP Family Medicine; Referring Provider Family Medicine; Visit Provider Family Medicine
DX: E11.9 Type 2 diabetes mellitus without complications (principal); I10 Essential (primary) hypertension
CPT/HCPCS: 36415; 80053; 80061; 85025

== ENCOUNTER → 2024-08-17 | Outpatient (CLI) | payer OTHER, SELFPAY ==
[2024-08-17 18:41] LABS: Microalbumin,Random Urine 14.2 mg/L (NO RANGE EST.); Microalbumin:Creatinine Ratio 6.3 mg/g CRE (<30 mg/g CRE)
== END | disposition home or self-care (01) ==
LOC: MTLAB 16:43
PROVIDERS: PCP Family Medicine; Referring Provider Family Medicine; Visit Provider Family Medicine
DX: E11.9 Type 2 diabetes mellitus without complications (principal); I10 Essential (primary) hypertension
CPT/HCPCS: 82043; 82570

== ENCOUNTER → 2024-08-23 | Outpatient (CLI) | payer OTHER, SELFPAY ==
--- NOTE | 2024-08-23 12:38 | RAD_ITS ---
INDICATION: PAIN, LUMP, INJURY EXAMINATION/TECHNIQUE: X-RAY - LEFT XR Foot Min 3 Views 3 VIEWS COMPARISON: FINDINGS: SOFT TISSUES: No soft tissue swelling or gas. No radiopaque foreign body. BONES/JOINTS: No acute fracture or subluxation.. Normal alignment. Preservation of the joint space.. No sclerotic or destructive changes observed. RAD/Foot min 3 Views IMPRESSION: Negative. Electronically Signed: Aashish Carnes DO at 10:07 EST ,
== END | disposition home or self-care (01) ==
LOC: MTRAD 12:37
PROVIDERS: PCP Family Medicine; Referring Provider Family Medicine; Visit Provider Family Medicine
DX: M79.672 Pain in left foot (principal)
CPT/HCPCS: 73630

== ENCOUNTER → 2025-08-02 | Outpatient (CLI) | payer OTHER, SELFPAY ==
[2025-08-02 12:29] LABS: Hematocrit 42.5 % (37-47); Hemoglobin 14.7 g/dL (12.0-15.0); Immature Granulocytes Count 0.030 X10^3/uL (0.0-0.0); Mean Corp Hgb Conc 34.6 g/dL (32-36); Mean Corpuscular Volume 82.7 fL (81-99); Mean Platelet Vol. 9.1 fl (6.2-12.0); NRBC Flagged by Analyzer 0 % (0-5); Platelet Count 322 K/mm3 (150-450); RBC Distribution Width CV 13.8 % (11.6-14.6); RBC Distribution Width SD 41.4 fl (35.1-43.9); Red Blood Count 5.14 M/mm3 (4.2-5.4); White Blood Count 7.9 K/mm3 (4.4-11.0)
[2025-08-02 12:59] LABS: AST(SGOT) 23 U/L (<=31); Alanine Aminotransfer ALT/SGPT 28 U/L (<=34); Albumin, Serum 4.3 g/dL (3.5-5.0); Alkaline Phosphatase 93 U/L (35-104); Anion Gap 13 (5-15); BUN 11 mg/dL (4-19); BUN/Creat Ratio 17.3 RATIO (10-20); Calcium,Total 9.7 mg/dL (7.6-11.0); Carbon Dioxide 23.4 mmol/L (21.0-32.0); Chloride 101 mmol/L (98-108); Cholesterol 212 mg/dL (<=200); Globulin 3.3 g/dL (2.2-4.2); Glucose 144 mg/dL (70-99); Low Density Lipoprotein Calc. 134 mg/dL; Potassium 4.2 mmol/L (3.3-5.1); Triglycerides 234 mg/dL; Very Low Density Lipoprotein 47 mg/dL (5-40); cholesterol:hdl ratio screen 5.92
[2025-08-02 13:09] LABS: Creatinine, Urine (random) 197.00 mg/dL (28.00-217.00); Microalbumin,Random Urine 35.5 mg/L (<20 mg/L)
== END | disposition home or self-care (01) ==
LOC: MTLAB 09:41
PROVIDERS: PCP Family Medicine; Referring Provider Family Medicine; Visit Provider Family Medicine
DX: E11.9 Type 2 diabetes mellitus without complications (principal); I10 Essential (primary) hypertension
CPT/HCPCS: 36415; 80053; 80061; 82043; 82570; 85025

== ENCOUNTER → 2025-08-03 | Outpatient (CLI) | payer OTHER, SELFPAY ==
--- NOTE | 2025-08-03 16:10 | BI_ITS ---
EXAM: SCRN MAMM (CAD)W/BOBO BILAT DATE: 08/03/2025 CLINICAL HISTORY: F, Age 55 y/o , SCREENING TECHNIQUE: Procedure Code: [id number] Modality: MG Procedure: SCRN MAMM (CAD)W/BOBO BILAT COMPARISON: Prior exam(s) were compared FINDINGS: TISSUE DENSITY: There are scattered areas of fibroglandular density. Bilateral Breast Mammographic Findings: No suspicious masses, calcifications or other abnormalities are identified. BI/SCRN MAMM (CAD)W/BOBO BILAT IMPRESSION: No mammographic evidence of malignancy in either breast. OVERALL FINAL ASSESSMENT BI-RADS 1: NEGATIVE. RECOMMENDATION: Routine annual follow-up in 1 Year Additional Recommendation none A letter with findings and recommendations will be mailed to the patient. Reading Location: [id number]
== END | disposition home or self-care (01) ==
LOC: OPBI 16:09
PROVIDERS: PCP Family Medicine; Referring Provider Family Medicine; Visit Provider Family Medicine
DX: Z12.31 Encounter for screening mammogram for malignant neoplasm of breast (principal)
CPT/HCPCS: 77063; 77067

== ENCOUNTER 2025-10-02 05:54 | Day surgery (SDC) | payer OTHER, SELFPAY ==
[2025-10-02] VITALS (7 sets, daily range): BP systolic 111–149; BP diastolic 58–74; PULSE 83–88; RESP 16; TEMP 36.2–36.3; O2SAT 94–98; BMI 37.4
--- OUTSIDE RECORDS SUMMARY | 2025-10-02 05:56 | XMS RPT_ITS | CCD ---
Author Organization [facility] Inform ion Partnership [facility] Care Team Providers Care Recruiter Coordinator Name Role Phone Dhaval Sandoval DO Primary Care Provider [phone] Dr. Seth Resendiz Primary Care Provider [phone] Dr. Seth Resendiz Referring Provider Dr. Danna Wood Attending Provider [phone] Dr. India Samuel Primary Care Provider Dr. India Samuel Referring Provider Dr. Almaz Mejía Attending Provider [phone] India Samuel Primary Care Unavailable Hong Isbell Attending Unavailable India Samuel Primary Care Unavailable India Samuel Attending Unavailable India Samuel Referring Unavailable India Samuel Referring Unavailable India Samuel Primary Care Unavailable India Samuel Attending Unavailable India Samuel Primary Care Unavailable India Samuel Attending Unavailable India Samuel Referring Unavailable India Samuel Primary Care Unavailable India Samuel Attending Unavailable India Samuel Referring Unavailable Allergies Allergy Classification Reported Allergen(s) Allergy Type Date of Onset Reaction(s) Facility (2 sources) environmental [Other] Propensity to adverse reactions [facility] Work Phone: Medications Current Medications Medication Drug Class(es) Dates Sig (Normalized) Sig (Original) 24 hr propranolol hydrochloride 80 mg extended release oral capsule (3 sources) beta-Adrenergic Migel Start: 03-30-2023 take 80 mg by mouth once daily Propranolol Active 80 MG PO DAILY March 30, 2023 12:00am rizatriptan 10 mg oral tablet (3 sources) Serotonin-1b and Serotonin-1d Receptor Agonist Start: 03-30-2023 take 1 tablet by mouth every two hours Rizatriptan Active 0 PO .COMPLEX March 30, 2023 12:00am take 1 tab at onset of headache; if no relief may repeat 1 tab after at least 2 hrs; max = 3 tabs/24 hr PO Semaglutide (3 sources) Start: 03-30-2023 Semaglutide (Ozempic) 0.25 mg or 0.5 mg (2 mg/3 mL) pen injector Active 0.25 MG SC EVERY WEEK March 30, 2023 12:00am for 4 weeks Completed/Discontinued Medications Medication Drug Class(es) Dates Sig (Normalized) Sig (Original) ibuprofen 200 mg oral capsule (7 sources) Nonsteroidal Anti-inflammatory Drug Start: 10-17-2019 End: 03-30-2023 take 200 mg by mouth every six hours Ibuprofen Discontinued 200 MG PO EVERY 6 HOURS October 17, 2019 1:00am March 30, 2023 9:17am Start: 10-01-2012 take 1 tablet by austyn th every eight hours as needed ibuprofen (MOTRIN) 800 mg tablet Take 1 tablet by mouth every 8 hours as needed (migraine). FOR PAIN. TAKE WITH FOOD. 0 10/01/2012 Active Comment on above: Take 1 tablet by austyn th every 8 hours as needed (migraine). FOR PAIN. TAKE WITH FOOD. ketorolac tromethamine 10 mg oral tablet (2 sources) Nonsteroidal Anti-inflammatory Drug, Cyclooxygenase Inhibitor Start: 06-05-20 18 take 1 tablet by mouth every six [...] Active Problems Problem Classification Problem Date Documented Date Episodic/Chronic Contraceptive and procreative management (10 sources) Patient encounter status; Translations: [Encounter for contraceptive management, unspecified] 03-23-2023 Episodic Diabetes mellitus without complication (1 source) Type 2 diabetes mellitus without complications; Translations: [Type 2 diabetes mellitus without complications] Onset: 08-07-2025 Chronic Disorders of lipid metabolism (2 sources) Mixed hyperlipidemia; Translations: [Mixed hyperlipidemia] Onset: 11-27-2005 11-27-2005 Chronic Headache; including migraine (6 sources) Migraine; Translations: [Migraine, unspecified, not intractable, without status migrainosus] Onset: 06-07-2018 03-02-2008 Chronic Mood disorders (2 sources) Recurrent major depressive episodes; Translations: [Major depressive disorder, recurrent, unspecified] 03-02-2008 Chronic Other and unspecified benign neoplasm (5 sources) History of polyp of colon; Translations: [Personal history of colonic polyps] 10-17-2019 Episodic Other female genital disorders (3 sources) Abnormal uterine bleeding; Translations: [Abnormal uterine and vaginal bleeding, unspecified] 03-30-2023 Chronic Other female genital disorders (7 sources) Abnormal uterine and vaginal bleeding, unspecified; Translations: [Unspecified disorders of menstruation and other abnormal bleeding from female genital tract] 03-19-2023 Chronic Other nutritional; endocrine; and metabolic disorders [...] [Obesity, unspecified] Onset: 06-07-2018 06-07-2018 Chronic Other screening for suspected conditions (not mental disorders or infectious disease) (4 sources) Encounter for screening for diabetes mellitus; Translations: [Screening for diabetes mellitus] Onset: 08-15-2025 03-19-2023 Episodic Other upper respiratory disease (2 sources) Allergic rhinitis; Translations: [Other allergic rhinitis] 03-02-2008 Chronic Residual codes; unclassified (10 sources) Family history of cancer of colon; Translations: [Family history of malignant neoplasm of digestive organs] 10-17-2019 Episodic Past or Other Problems Problem Classification Problem [...] [Impaired fasting glucose] Onset: 06-07-2018 06-07-2018 Episodic Other connective tissue disease (1 source) Pain in left foot; Translations: [Pain in left foot] Onset: 09-20-2024 Episodic Results Test Name Value Interpretation Reference Range Facility SCRN MAMM (CAD)W/BOBO BILATo n 08-03-2025 SCRN MAMM (CAD)W/BOBO BILAT [facility] Imaging Services [address] [place] [id number] [id number] SCRN MAMM (CAD)W/BOBO BILAT MR#: [id number] Acct: [id number] Name: WHIT JON Rep #: [id number] : 1970 F 55 From: Luisana Rose i, MD PCP: Dr. India Samuel MD Status: [facility] Study: SCRN MAMM (CAD)W/BOBO BILAT Date of Exam: 07/13 01/03 Exam# [id number] Ordering Dr: India Samuel MD EXAM: SCRN MAMM (CAD)W/BOBO BILAT DATE: 08/03/2025 CLINICAL HISTORY: F, Age 55 y/o , SCREENING TECHNIQUE: Procedure Code: BISMWCADBTOM Modality: MG Procedure: SCRN MAMM (CAD)W/BOBO BILAT COMPARISON: Prior exam(s) were compared FINDINGS: TISSUE DENSITY: There are scattered areas of fibroglandular density. Bilateral Breast Mammographic Findings: No suspicious masses, calcifications or other abnormalities are identified. BI/SCRN MAMM (CAD)W/BOBO BILAT IMPRESSION: No mammographic evidence of malignancy in either breast. OVERALL FINAL ASSESSMENT BI-RADS 1: NEGATIVE. RECOMMENDATION: Routine annual follow-up in 1 Year Additional Recommendation none A letter with findings and recommendations will be mailed to the patient. Reading Location: [id number] CC: Dr. India Samuel MD Sourcing Consultant: Signed Normal [facility] CBC W/Diff, Automatedon 10-2 -2024 Absolute Lymph 2.48 X10 3/uL Normal 0.83-4.51 [facility] Comment on above: Performed By: #### L 500.4050, L100.0100, L502.0250, L500.4100 #### [facility] [address] [place], [address] Absolute Neut 4.6 X10 3/uL Normal 2.0-7.7 [facility] Comment on above: Performed By: #### L 500.4050, L100.0100, L502.0250, L500.4100 #### [facility] [address] [place], [address] Basophils/100 WBC (Bld) 0.6 % Normal 0-1 [facility] Comment on above: Performed By: #### L 500.4050, L100.0100, L502.0250, L500.4100 #### [facility] [address] [place], [address] Eosinophils/100 WBC (Bld) 2.7 % Normal 0-5 [facility] Comment on above: Performed By: #### L 500.4050, L100.0100, L502.0250, L500.4100 #### [facility] [address] [place], [address] Erythrocyte distribution width (RBC) [Ratio] 13.8 % Normal 11.6-14.6 [facility] Comment on above: Performed By: #### L 500.4050, L100.0100, L502.0250, L500.4100 #### [facility] [address] [place], [address] Hematocrit (Bld) [Volume fraction] 42.5 % Normal 37-47 [facility] Comment on above: Performed By: #### L 500.4050, L100.0100, L502.0250, L500.4100 #### [facility] [address] [place], [address] Hemoglobin (Bld) [Mass/Vol] 14.7 g/dL Normal 12.0-15.0 [facility] Comment on above: Performed By: #### L 500.4050, L100.0100, L502.0250, L500.4100 #### [facility] [address] [place], [address] IG% 0.400 Normal 0.0-0.9 [facility] Comment on above: Result Comment: IG% - Immature Granulocytes (promyelocytes, myelocytes and metamyelocytes) > 1% indicates that a LEFT SHIFT is Present. Performed By: #### L 500.4050, L100.0100, L502.0250, L500.4100 #### [facility] [address] [place], [address] Lymphocytes/100 WBC (Bld) 31.4 % Normal 19-41 [facility] Comment on above: Performed By: #### L 500.4050, L100.0100, L502.0250, L500.4100 #### [facility] [address] [place], [address] MCH (RBC) [Entitic mass] 28.6 pg Normal 27.0-32.0 [facility] Comment on above: Performed By: #### L 500.4050, L100.0100, L502.0250, L500.4100 #### [facility] [address] [place], [address] MCHC (RBC) [Mass/Vol] 34.6 g/dL Normal 32-36 [facility] Comment on above: Performed By: #### L 500.4050, L100.0100, L502.0250, L500.4100 #### [facility] [address] [place], [address] MCV (RBC) [Entitic vol] 82.7 fL Normal 81-99 [facility] Comment on above: Performed By: #### L 500.4050, L100.0100, L502.0250, L500.4100 #### [facility] [address] [place], [address] Monocytes/100 WBC (Bld) 7.0 % Normal 0-10 [facility] Comment on above: Performed By: #### L 500.4050, L100.0100, L502.0250, L500.4100 #### [facility] [address] [place], [address] Neutrophils/100 WBC (Bld) 57.9 % Normal 47-70 [facility] Comment on above: Performed By: #### L 500.4050, L100.0100, L502.0250, L500.4100 #### [facility] [address] [place], [address] Nucleated RBC (Bld) [#/Vol] 0 10*3/uL Normal 0-5 [facility] Comment on above: Performed By: #### L 500.4050, L100.0100, L502.0250, L500.4100 #### [facility] [address] [place], [address] Platelet mean volume (Bld) [Entitic vol] 9.1 fL Normal 6.2-12.0 [facility] Comment on above: Performed By: #### L 500.4050, L100.0100, L502.0250, L500.4100 #### [facility] [address] [place], [address] Platelets (Bld) [#/Vol] 322 10*3/uL Normal 150-450 [facility] Comment on above: Performed By: #### L 500.4050, L100.0100, L502.0250, L500.4100 #### [facility] [address] [place], [address] RBC (Bld) [#/Vol] 5.14 10*6/uL Normal 4.2-5.4 [facility] Comment on above: Performed By: #### L 500.4050, L100.0100, L502.0250, L500.4100 #### [facility] [address] [place], [address] RDW SD 41.4 fl Normal 35.1-43.9 [facility] Comment on above: Performed By: #### L 500.4050, L100.0100, L502.0250, L500.4100 #### [facility] [address] [place], [address] WBC (Bld) [#/Vol] 7.9 10*3/uL Normal 4.4-11.0 [facility] Comment on above: Performed By: #### L 500.4050, L100.0100, L502.0250, L500.4100 #### [facility] [address] [place], [address] Comprehensive Metabolic [facility] 08-02-2025 Albumin [Mass/Vol] 4.3 g/dL Normal 3.5-5.0 [facility] Comment on above: Performed By: #### L 500.4050, L100.0100, L502.0250, L500.4100 #### [facility] [address] [place], [address] Albumin/Globulin [Mass ratio] 1.3 {ratio} Normal 0.9-2.4 [facility] Comment on above: Performed By: #### L 500.4050, L100.0100, L502.0250, L500.4100 #### [facility] [address] [place], [address] ALK PHOS 93 U/L Normal 35-104 [facility] Comment on above: Performed By: #### L 500.4050, L100.0100, L502.0250, L500.4100 #### [facility] [address] [place], [address] ALT [Catalytic activity/Vol] 28 U/L Normal <=34 [facility] Comment on above: Performed By: #### L 500.4050, L100.0100, L502.0250, L500.4100 #### [facility] [address] [place], [address] AST [Catalytic activity/Vol] 23 U/L Normal <=31 [facility] Comment on above: Performed By: #### L 500.4050, L100.0100, L502.0250, L500.4100 #### [facility] [address] [place], [address] Bilirubin [Mass/Vol] 0.49 mg/dL Normal 0.00-1.30 [facility] Comment on above: Performed By: #### L 500.4050, L100.0100, L502.0250, L500.4100 #### [facility] [address] [place], [address] BUN/CRE 17.3 RATIO Normal 10-20 [facility] Comment on above: Performed By: #### L 500.4050, L100.0100, L502.0250, L500.4100 #### [facility] [address] [place], [address] Calcium [Mass/Vol] 9.7 mg/dL Normal 7.6-11.0 [facility] Comment on above: Performed By: #### L 500.4050, L100.0100, L502.0250, L500.4100 #### [facility] [address] [place], [address] Chloride [Moles/Vol] 101 mmol/L Normal 98-108 [facility] Comment on above: Performed By: #### L 500.4050, L100.0100, L502.0250, L500.4100 #### [facility] [address] [place], [address] CO2 [Moles/Vol] 23.4 mmol/L Normal 21.0-32.0 [facility] Comment on above: Performed By: #### L 500.4050, L100.0100, L502.0250, L500.4100 #### [facility] [address] [place], [address] Creatinine [Mass/Vol] 0.65 mg/dL Low 0.70-1.20 [facility] Comment on above: Performed By: #### L 500.4050, L100.0100, L502.0250, L500.4100 #### [facility] [address] [place], [address] GAP 13 Normal 5-15 [facility] Comment on above: Performed By: #### L 500.4050, L100.0100, L502.0250, L500.4100 #### [facility] [address] [place], [address] GFR/1.73 sq M.predicted among non-blacks MDRD (S/P/Bld) [Vol rate/Area] 104 mL/min/{1.73_m2} Normal >60 [facility] Comment on above: Result Comment: mL/m in/1.73m2 CKD-EPI Creatinine Equation (2020) Performed By: #### L 500.4050, L100.0100, L502.0250, L500.4100 #### [facility] [address] [place], [address] Globulin (S) [Mass/Vol] 3.3 g/dL Normal 2.2-4.2 [facility] Comment on above: Performed By: #### L 500.4050, L100.0100, L502.0250, L500.4100 #### [facility] [address] [place], [address] Glucose [Mass/Vol] 144 mg/dL High 70-99 [facility] Comment on above: Performed By: #### L 500.4050, L100.0100, L502.0250, L500.4100 #### [facility] [address] [place], [address] Potassium [Moles/Vol] 4.2 mmol/L Normal 3.3-5.1 [facility] Comment on above: Performed By: #### L 500.4050, L100.0100, L502.0250, L500.4100 #### [facility] [address] [place], [address] Sodium [Moles/Vol] 137 mmol/L Normal 133-145 [facility] Comment on above: Performed By: #### L 500.4050, L100.0100, L502.0250, L500.4100 #### [facility] [address] [place], [address] T PROT 7.6 g/dL Normal 5.9-8.4 [facility] Comment on above: Performed By: #### L 500.4050, L100.0100, L502.0250, L500.4100 #### [facility] [address] [place], [address] Urea nitrogen [Mass/Vol] 11 mg/dL Normal 4-19 [facility] Comment on above: Performed By: #### L 500.4050, L100.0100, L502.0250, L500.4100 #### [facility] [address] [place], [address] Lipid Profileon 08-02-2025 CHOL:HDL 5.92 Normal [facility] Comment on above: Performed By: #### L 500.4050, L100.0100, L502.0250, L500.4100 #### [facility] [address] [place], [address] Cholesterol [Mass/Vol] 212 mg/dL High <=200 [facility] Comment on above: Result Comment: Chol esterol level, Desirable <200 mg/dL Borderline high cholesterol 200-239 mg/dL High cholesterol >=240 mg/dL Recommendations of the NCEP Adult Treatment Panel for the following risk-cutoff thresholds for the [place] population. Performed By: #### L 500.4050, L100.0100, L502.0250, L500.4100 #### [facility] [address] [place], [address] Cholesterol in HDL [Mass/Vol] 36 mg/dL Low [facility] Comment on above: Result Comment: Mady onal Cholesterol Education Program (NCEP) guidelines: <40 mg/dL: Low HDL-cholesterol (major risk factor for CHD) >= 60 mg/dL: High HDL-cholesterol (negative risk factor for CHD) HDL-cholesterol is affected by a number of factors, e.g. smoking, exercise, hormones, sex and age. Performed By: #### L 500.4050, L100.0100, L502.0250, L500.4100 #### [facility] [address] [place], [address] Cholesterol in LDL [Mass/Vol] 134 mg/dL Normal [facility] Comment on above: Result Comment: Bord unebkm=873-311 mg/dL Higher Pkhl=386 mg/dL or greater Brown Equation 2020 for LDL-C Performed By: #### L 500.4050, L100.0100, L502.0250, L500.4100 #### [facility] [address] [place], [address] Cholesterol in VLDL [Mass/Vol] 47 mg/dL High 5-40 [facility] Comment on above: Performed By: #### L 500.4050, L100.0100, L502.0250, L500.4100 #### [facility] [address] [place], [address] Triglyceride [Mass/Vol] 234 mg/dL High [facility] Comment on above: Result Comment: The drugs N-Acetylcysteine and Metamizole may falsely depress this assay. Normal range: <150 mg/dL Borderline High: 150-199 mg/dL High: 200-499 mg/dL Very High: >500 mg/dL Performed By: #### L 500.4050, L100.0100, L502.0250, L500.4100 #### [facility] [address] [place], [address] Microalb:Creat Ratio,Random URon 08-02-2025 Creatinine [Mass/Vol] 197.00 mg/dL Normal 28.00-217.00 [facility] Comment on above: Performed By: #### L 500.4050, L100.0100, L502.0250, L500.4100 #### [facility] [address] [place], [address] MALB:CREAT 18.0 mg/g CRE Normal <30 mg/g CRE [facility] Comment on above: Performed By: #### L 500.4050, L100.0100, L502.0250, L500.4100 #### [facility] [address] [place], [address] MICROALBUMIN,UR 35.5 mg/L Normal <20 mg/L [facility] Comment on above: Performed By: #### L 500.4050, L100.0100, L502.0250, L500.4100 #### [facility] [address] [place], [place], [address] Foot min 3 Viewson 4 Foot min 3 Views [facility] Imaging Services [address] [place], [place] [address] Foot min 3 Views MR#: [id number] Acct: [id number] Name: WHIT JON Rep #: [id number] : 1970 F 54 From: Aashish Carnes DO PCP: Dr. India Samuel MD Status: REG CLI Study: Foot min 3 Views Date of Exam: 08/23/24 Exam# [id number] Ordering Dr: India Samuel MD [id number] INDICATION: PAIN, LUMP, INJURY EXAMINATION/TECHNIQUE : X-RAY - LEFT XR Foot Min 3 Views 3 VIEWS COMPARISON: __ FINDINGS: SOFT TISSUES: No soft tissue swelling or gas. No radiopaque foreign body. BONES/JOINTS: No acute fracture or subluxation.. Normal alignment. Preservation of the joint space.. No sclerotic or destructive changes observed. RAD/Foot min 3 Views IMPRESSION: Negative. Electronically Signed: Aashish Carnes DO at 10:07 EST Reading Location ID and State: [facility] / [place] Tel [phone], Service support , CC: Dr. India Samuel MD Sourcing Consultant: Signed Normal [facility] Microalb:Creat Ratio,Random URon 08-17-2024 Creatinine [Mass/Vol] 227.00 mg/dL Normal NO RANGE EST . [facility] Comment on above: Performed By: #### L 502.0250 #### [facility] [address] [place], [place], [address] MALB:CRE 6.3 mg/g CRE Normal <30 mg/g CRE [facility] Comment on above: Performed By: #### L 502.0250 #### [facility] [address] [place], [place], [id number] MICROALBUMIN,UR 14.2 mg/L Normal NO RANGE EST. [facility] Comment on above: Performed By: #### L 502.0250 #### [facility] [address] [place], [place], [id number] Absolute lymphocyte countOrd ered By: Dr. Wood on 03-23-2023 Lymphocytes Auto (Unsp spec) [#/Vol] 2.21 10*3/uL 0.83-4.51 [facility] Basophil percentageOrdered B y: Dr. Wood on 03-23-2023 Basophils/100 WBC (Bld) 0.6 % 0-1 [facility] Bilirubin [Mass/Vol] 0.50 mg/dL 0.20-1.00 [facility] Comment on above: For patients on eltr ombopag therapy, use of Dimension [place] TBIL is not recommended. Chloride [Moles/Vol] 104 mmol/L 98-107 [facility] Cholesterol [Mass/Vol] 204 mg/dL <200 [facility] Comment on above: <200 mg/dL Desirable 200-240 mg/dL Borderline >240 mg/dL High Risk Eosinophils/100 WBC (Bld) 1.2 % 0-5 [facility] Glucose [Mass/Vol] 168 mg/dL 74-106 [facility] Comment on above: Fasting Glucose resu lt greater than or equal to 126 mg/dL suggests DIABETES MELLITUS per A.D.A. criteria. Neutrophils (Bld) [#/Vol] 5.6 10*3/uL 2.0-7.7 [facility] Neutrophils/100 WBC (Bld) 65.5 % 47-70 [facility] Potassium [Moles/Vol] 4.1 mmol/L 3.5-5.1 [facility] Protein [Mass/Vol] 7.5 g/dL 6.4-8.2 [facility] Sodium [Moles/Vol] 137 mmol/L 136-145 [facility] Triglyceride [Mass/Vol] 148 mg/dL <199 [facility] Comment on above: The drugs N-Acetylcy steine and Metamizole may falsely depress this assay.Serum Triglycerides Reference Interval Normal <150 mg/dL Borderline high 150 - 199 mg/dL High 200 - 499 mg/dL Very High > or = 500 mg/dL WBC (Bld) [#/Vol] 8.6 10*3/uL 4.4-11.0 [facility] Blood erythrocytes count (nu mber/volume)Ordered By: Dr. Wood on 03-23-2023 RBC (Bld) [#/Vol] 4.85 10*6/uL 4.2-5.4 [facility] Blood hemoglobin measurement (mass/volume)Ordered By: Dr. Wood on 03-23-2023 Hemoglobin (Bld) [Mass/Vol] 12.3 g/dL 12.0-15.0 [facility] Blood lymphocytes/100 leukoc ytesOrdered By: Dr. Wood on 03-23-2023 Lymphocytes/100 WBC (Bld) 25.7 % 19-41 [facility] Blood monocytes/100 leukocyt esOrdered By: Dr. Wood on 03-23-2023 Monocytes/100 WBC (Bld) 6.4 % 0-10 [facility] Blood platelet mean volumeOr dered By: Dr. Wood on 03-23-2023 Platelet mean volume (Bld) [Entitic vol] 9.3 fL 6.2-12.0 [facility] Determination of erythrocyte mean corpuscular volume (MCV)Ordered By: Dr. Wood on 03-23-2023 MCV (RBC) [Entitic vol] 83.1 fL 81-99 [facility] Hematocrit Auto (Bld) [Volum e fraction]Ordered By: Dr. Wood on 03-23-2023 Hematocrit (Bld) [Volume fraction] 40.3 % 37-47 [facility] - Chemistry and C hemistry - challengeOrdered By: Dr. Wood on 03-23-2023 ALP [Catalytic activity/Vol] 104 U/L 45-117 [facility] ALT [Catalytic activity/Vol] 28 U/L 13-56 [facility] CO2 [Moles/Vol] 26.0 mmol/L 21.0-32.0 [facility] Globulin (S) [Mass/Vol] 4.2 g/dL 2.2-4.2 [facility] Urea nitrogen/Creatinine [Mass ratio] 14.1 mg/mg 10-20 [facility] Laboratory - Hematology and Cell countsOrdered By: Dr. Wood on 03-23-2023 Erythrocyte distribution width (RBC) [Entitic vol] 43.2 fL 35.1-43.9 [facility] Erythrocyte distribution width (RBC) [Ratio] 14.3 % 11.6-14.6 [facility] Immature granulocytes/100 WBC (Bld) 0.600 % 0.0-0.9 [facility] Comment on above: IG% - Immature Granu locytes (promyelocytes, myelocytes and metamyelocytes) > 1% indicates that a LEFT SHIFT is Present. MCH (RBC) [Entitic mass] 25.4 pg 27.0-32.0 [facility] Nucleated RBC/100 WBC (Bld) [Ratio] 0 % 0-5 [facility] MCHC Auto (RBC) [Mass/Vol]Or dered By: Dr. Wood on 03-23-2023 MCHC (RBC) [Mass/Vol] 30.5 g/dL 32-36 [facility] No Panel InformationOrdered By: Dr. Wood on 03-23-2023 Estimated GFR (MDRD) Amer 111 mL/min >60 [facility] Comment on above: GFR Calc Estimated GFR (MDRD) Non-Af Amer 92 mL/min >60 [facility] Comment on above: Non- GFR Calc Thyroid Stimulating Hormone (TSH) 1.24 uIU/mL 0.358-3.74 [facility] Urine Microalbumin/Creatinine Ratio 8.8 mg/g CRE <30 [facility] Platelets bldOrdered By: Dr. Wood on 03-23-2023 Platelets (Bld) [#/Vol] 370 10*3/uL 150-450 [facility] Serum or plasma albumin daryn urement (mass/volume)Ordered By: Dr. Wood on 03-23-2023 Albumin [Mass/Vol] 3.3 g/dL 3.2-5.0 [facility] Serum or plasma albumin/glob ulin mass ratioOrdered By: Dr. Wood on 03-23-2023 Albumin/Globulin [Mass ratio] 0.8 {ratio} 0.9-2.4 [facility] Serum or plasma calcium daryn urement (mass/volume)Ordered By: Dr. Wood on 03-23-2023 Calcium [Mass/Vol] 9.3 mg/dL 8.5-10.1 [facility] Serum or plasma cholesterol in HDL measurement (mass/volume)Ordered By: Dr. Wood on 03-23-2023 Cholesterol in HDL [Mass/Vol] 42 mg/dL >40 [facility] Comment on above: The drugs N-Acetylcy steine and Metamizole may falsely depress this assay. Reference Range HDL <40 mg/dL Low HDL Cholesterol HDL >or= 60 mg/dL High HDL Cholesterol Serum or plasma cholesterol in VLDL measurement (mass/volume)Ordered By: Dr. Wood on 03-23-2023 Cholesterol in VLDL [Mass/Vol] 30 mg/dL 5-40 [facility] Serum or plasma creatinine m easurement (mass/volume)Ordered By: Dr. Wood on 03-23-2023 Creatinine [Mass/Vol] 0.71 mg/dL 0.55-1.02 [facility] Comment on above: The validity of the calculated GFR & GFRAA in patients over 70 years has not been determined. Clinical correlation is essential. Serum or plasma low density lipoprotein (LDL) cholesterol measurement (mass/volume)Ordered By: Dr. Wood on 03-23-2023 Cholesterol in LDL [Mass/Vol] 132 mg/dL 0-130 [facility] Serum or plasma urea nitroge n measurement (mass/volume)Ordered By: Dr. Wood on 03-23-2023 Urea nitrogen [Mass/Vol] 10 mg/dL 7-18 [facility] Thin prep Papanicolaou smear with manual screeningOrdered By: Dr. Wood on 03-23-2023 Thin prep Papanicolaou smear with manual screening 26 U/L 15-37 [facility] Thin prep Papanicolaou smear with manual screening 7 5-15 [facility] Thin prep Papanicolaou smear with manual screening 26.3 mg/L NO RANGE EST. [facility] Urine creatinine measurement (mass/volume)Ordered By: Dr. Wood on 03-23-2023 Creatinine (U) [Mass/Vol] 299.00 mg/dL NO RANGE EST. [facility] Whole blood hemoglobin A1c/t otal hemoglobin ratio (mass fraction)Ordered By: Dr. Wood on 03-23-2023 HbA1c (Bld) [Mass fraction] 7.7 % 3.8-5.6 [facility] Comment on above: Normal < 5.7 % Predi abetic 5.7 - 6.4 % Diabetic >or= 6.5 % Please note range changes. [facility] 04-24-2022 [facility] HNO ID: [id number] Author: Mammography Coordinator Service: ? Author Type: Physician Type: Letter Filed: 04/28/2022 11:34 PM Note Text: April 24, 2022 PID: [id number] Whit Jon [address] [place] [address] Dear Ms. Jon, We are pleased to [...] report will be kept on file at [facility] as part of your permanent medical record and are available for your continuing care. Thank you for allowing us to help in meeting your health care needs. Sincerely, Dr. Benitez Interpreting Radiologist [facility] (Normal over 40) Normal [facility] MANNY SCREENING W TOMOon 04-24 MANNY SCREENING W BOBO * * *Final Report* * * DATE OF EXAM: Apr 24 2022 3:01PM [id number] - [facility] SCREENING W BOBO / PROCEDURE REASON: screening * * * * Physician Interpretation * * * * RESULT: #[id number] - [facility] SCREENING W BOBO BILATERAL DIGITAL SCREENING MAMMOGRAM [...] exams dated: 03/05/2021 mammogram, 02/10/2020 mammogram - [facility], 11/02/2018 mammogram, and 10/27/2017 mammogram - [facility]. There are scattered fibroglandular elements in both breasts. No significant masses, calcifications, or other findings are seen in either breast. There has been no significant interval change. IMPRESSION: NEGATIVE There is no mammographic evidence of malignancy. A 1 year screening mammogram is recommended. Candy Benitez M.D., jr/jose:04/24/2022 17:59:14 Paid Intern(s): Lois Perez, [facility] letter sent: Normal over 40 Mammogram [...] Health, Family Medicine, and Medical/Surgical Oncology, the [facility] has carefully reviewed the data and [...] their providers when to stop screening mammograms. Sourcing Consultant: Jose Transcribe Date/Time: Apr 24 2022 2:48P Dictated by: CANDY BENITEZ MD This examination was interpreted and the report reviewed and electronically signed by: CANDY BENITEZ MD on Apr 24 2022 5:59PM EST [id number] N Normal [facility] Cervical or vagninal specime n microscopic examination by cytology stain (reported ason 04-15-2022 Cytology report Cyto stain Doc (Cvx/Vag) Comment . [facility] Work Phone: Comment on above: The Pap smear is a s creening test designed to aid in thedetection of premalignant and malignant conditions of theuterine cervix. It is not a diagnostic procedure andshould not be used as the sole means of detecting cervicalcancer. Both false-positive and false-negative reports dooccur. Cervical specimen human anant lloma virus (HPV) type 16 DNA detection by probe with sigon 04-15-2022 HPV 16 DNA Probe+sig amp Ql (Cvx) Negative Negative [facility] Work Phone: Laboratory - Cytologyon Ems Director Cyto stain Nom (Cvx/Vag) [ID] Comment . [facility] Work Phone: Comment on above: Chester Rainey , Loading Unit Operator (ASCP) Laboratory - Miscellaneous t estson 04-15-2022 Service comment (Unsp spec) [Interp] Comment . [facility] Work Phone: Comment on above: This liquid based Th inPrep(R) pap test was screened withthe use of an image guided system. Service comment (Unsp spec) [Interp] . . [facility] Work Phone: No Panel Informationon 04-15 HPV Type 18 Comment Negative Negative [facility] Work Phone: Comment on above: Performed at: =G - [facility] [address] [id number] Director: Ronit Garcias MD, Phone: [phone] at: WB - [facility] [address] [id number] Director: Ronit Garcias MD, Phone: [phone] Pap Smear Additional Comments 30-65 . [facility] Work Phone: Pathology report final diagnosis Narrative Comment . [facility] Work Phone: Comment on above: NEGATIVE FOR INTRAEP ITHELIAL LESION OR MALIGNANCY. Vital Signs Date Time Vital Sign Value Performing Clinician Faci lity 05-14-2023 16:06-0400 Body height 170.[address] Seth Resendiz Work Phone: [facility] 05-14-2023 16:04-0400 Body mass index (BMI) [Ratio] 38.4 kg/m2 Dr. Seth Resendiz Work Phone: [facility] 05-14-2023 16:04-0400 Body weight 111.[address] Seth Resendiz Work Phone: [facility] 05-14-2023 16:04-0400 Diastolic blood pressure 80 mm[Hg] Dr. Seth Resendiz Work Phone: [facility] 05-14-2023 16:04-0400 Systolic blood pressure 139 mm[Hg] Dr. Seth Resendiz Work Phone: [facility] 03-30-2023 09:19-0400 Body height 170.[address] Seth Resendiz Work Phone: [facility] 03-30-2023 09:16-0400 Body mass index (BMI) [Ratio] 38.4 kg/m2 Dr. Seth Resendiz Work Phone: [facility] 03-30-2023 09:16-0400 Body weight 111.[address] Seth Resendiz Work Phone: [facility] 03-30-2023 09:16-0400 Diastolic blood pressure 82 mm[Hg] Dr. Seth Resendiz Work Phone: [facility] 03-30-2023 09:16-0400 Systolic blood pressure 142 mm[Hg] Dr. Seth Resendiz Work Phone: [facility] 03-19-2023 14:53-0400 Body mass index (BMI) [Ratio] 22.7 kg/m2 Dr. Seth Resendiz Work Phone: [facility] 03-19-2023 14:53-0400 Body weight 65.[address] Seth Resendiz Work Phone: [facility] 03-19-2023 14:53-0400 Diastolic blood pressure 84 mm[Hg] Dr. Seth Resendiz Work Phone: [facility] 03-19-2023 14:53-0400 Systolic blood pressure 165 mm[Hg] Dr. Seth Resendiz Work Phone: [facility] Encounters Encounter Date Encounter Type Care Provider Facility Start: 10-02-2025 ambulatory [facility] Facility: [facility] Start: 08-03-2025 End: 08-03-2025 ambulatory [facility] Facility:[facility] Start: 08-02-2025 End: 08-02-2025 ambulatory [facility] Facility:[facility] Start: 08-23-2024 End: 08-23-2024 ambulatory [facility] Facility:[facility] Start: 08-17-2024 End: 08-17-2024 ambulatory [facility] Facility:[facility] Start: 05-14-2023 End: 05-14-[address] Seth Resendiz Work Phone: [facility] Work Phone: Start: 05-14-2023 End: 05-14-[address] Seth eRsendiz Work Phone: [facility]-Laboratory, Specimen Work Phone: Start: 05-14-2023 End: 05-14-[address] Seth Resendiz Work Phone: [facility] Work Phone: Start: 05-07-2023 End: 05-07-[address] Seth Resendiz Work Phone: [facility] Work Phone: Start: 05-07-2023 End: 05-07-[address] Seth Resendiz Work Phone: [facility] Work Phone: Start: 03-30-2023 End: 03-30-[address] Seth Resendiz Work Phone: [facility] Work Phone: Start: 03-30-2023 End: 03-30-[address] [facility]endiz [facility] Start: 03-30-2023 End: 03-30-[address] Seth Resendiz Work Phone: [facility] Start: 03-23-2023 End: 03-23-[address] Seth Resendiz [facility] Start: 03-19-2023 End: 03-19-[address] Seth Resendiz Work Phone: [facility] Start: 04-24-2022 End: 04-24-2022 Subsequent hospital visit by physician Screen Mammo [facility] Wstr Mammogram Start: 04-24-2022 Documentation procedure Mammog sylvia Coordinator [facility] Start: 04-24-2022 Letter encounter Mammography Coordinator [facility] Department Start: 04-23-2022 End: 04-23-2022 Patient encounter procedure [facility], [facility] Start: 04-15-2022 End: 04-15-2022 [facility] Start: 06-07-2018 Patient encounter status Screen Wstr [facility] Work Phone: Procedures Date Procedure Procedure Detail Performing Clinician Start: 05-07-2023 Screening mammography Cathryn Resendiz Work Phone: Start: 04-24-2022 MANNY SCREENING W BOBO Cc f Provider Start: 04-24-2022 Mammography Screen Wst r Start: 04-23-2022 Pelvic echography Plan of Treatment Date Care Activity Detail Author Start: 05-14-2023 Liquid based cervical cytology screening [facility] Start: 04-24-2023 Mammography MAMMOGRAM [facility] Start: 10-27-2022 Urine microalbumin profile DTAP,TDAP,TD (3 - Td or Tdap) [facility] Start: 06-12-2022 Influenza vaccination INFLUENZA (#1) [facility] Start: 04-15-2022 [facility] Work Phone: Start: 06-19-2021 HPV TESTING HPV TESTING [facility] Start: 06-19-2021 PAP TESTING PAP TESTING [facility] Start: 05-29-2021 DIABETES SCREEN DIABETES SCREEN [facility] Start: 2021 SHINGRIX VACCINE (1 of 2) SHINGRIX VACCINE (1 of 2) [facility] Start: 10-02-2017 LIPID SCREEN LIPID SCREEN [facility] Start: 01-25-2016 COLOGUARD (FIT-DNA) COLOGUARD (FIT-DNA) [facility] Start: 01-25-2016 Colonoscopy COLONOSCOPY [facility] Start: 01-25-2016 COLORECTAL CANCER SCREENING COLORECTAL CANCER SCREENING [facility] Start: 01-25-[address] COLONOGRAPHY [facility] Start: 01-25-2016 FECAL OCCULT BLOOD FECAL OCCULT BLOOD [facility] Start: 01-25-2016 SIGMOIDOSCOPY SIGMOIDOSCOPY [facility] Start: 1989 HEPATITIS C SCREENING HEPATITIS C SCREENING [facility] Start: 1989 HIV SCREENING HIV SCREENING [facility] Start: 1970 COVID-19 VACCINE (#1) COVID-19 VACCINE (#1) [facility] Path report.final Dx Spec [facility] Work Phone: Path report.final Dx Spec [facility] Work Phone: [facility] Immunizations Immunization Date Immunization Notes Care Provider Guanaco carr 10-27-2012 tetanus toxoid, redu mohit diphtheria toxoid, and acellular pertussis vaccine, adsorbed Screen [facility] Work Phone: 05-17-2002 diphtheria and tetan us toxoids, adsorbed for pediatric use Screen [facility] Work Phone: Payers Date Payer Category Payer Self-pay [id number] 2024 Unknown [id number] 2014 Unknown MMO MMO [employer] [id number] 2014-Present [phone] [address] [place] [address] PPO [id number] Unknown [id number] Unknown [facility] PACKAGE PLAN [id number] Unknown [id number] Unknown [id number] Unknown [id number] Unknown [id number] Unknown [id number] Social History Date Type Detail Facility Start: 11-08-2019 End: 05-14-2023 Tobacco smoking status MOIS Unknown if ever smoked [facility] Start: 11-08-2019 Non-smoker [facility] Start: 1970 Sex Assigned At Female C [facility] Tobacco smoking stat us MOIS Never smoked tobacco [facility] Start: 11-02-2018 Alcohol intake Current drinke r of alcohol (finding) [facility] Start: 03-02-2008 History SDOH Alcohol Comment 1-2 times per month [facility] Start: 04-14-2022 End: 04-24-2022 Exposure to SARS-CoV-2 (event) Not sure [facility] Note 04-24-2022 Letter - Mammography Coordinator - 04/24/2022 5:59 PM EDT Note Date & Type Note Facility 04-24-2022 Miscellaneous Notes April 24, 2022 PID: [id number] Whit Jon [address] [place] [address] Dear Ms. Jon, We are pleased to [...] report will be kept on file at [facility] as part of your permanent medical record and are available for your continuing care. Thank you for allowing us to help in meeting your health care needs. Sincerely, Dr. Benitez Interpreting Radiologist [facility] (Normal over 40) documented in this encounter [facility] Progress note 04-24-2022 Note Date & Type Note Facility 04-24-2022 Note HNO ID: [id number] Author: RT Benjy(R) Service: ? Author Type: [...] RT Benjy(R) April 24, 2022 2:29 PM [facility] History of Present illness Narrative 04-24-2022 RT [...] 2022 2:29 PM documented in this encounter [facility] Clinical Note 04-15-2022 Note Date & Type Note Facility 04-15-2022 Note [facility] Work Phone: Pap Smear Specimen Adequacy April 15, 2022 11:00am Comment . Satisfactory for evaluation. Endocervical and/or squamous metaplasticcells (endocervical component) are present. Comment on above: Satisfactory for basilio luation. Endocervical and/or squamous metaplasticcells (endocervical component) are present. History of Past illness Narrative 10-01-2012 Note Date & Type Note Facility 10-01-2012 History of Past i llness Narrative Problem Noted Date Resolved Date Bulimia nervosa 10/01/2012 documented as of this encounter (statuses as of 04/25/2022) [facility] History of Past illness Narrative 10-01-2012 Note Date & Type Note Facility 10-01-2012 History of Past i llness Narrative Problem Noted Date Resolved Date Bulimia nervosa 10/01/2012 documented as of this encounter (statuses as of 04/26/2022) [facility] Evaluation note Note Date & Type Note Facility Evaluation note No assessment information availa ble [facility] Work Phone: Evaluation note Note Date & Type Note Facility Evaluation note Diagnosis Onset Date Abnormal uterine bleeding [place] Diabetes mellitus screening acute Abnormal uterine bleeding [place] Contraceptive management acu te [facility] Work Phone: Evaluation note Note Date & Type Note Facility Evaluation note Diagnosis Onset Date Abnormal uterine bleeding [place] Diabetes mellitus screening acute Abnormal uterine bleeding [place] Contraceptive management acu te Abnormal uterine bleeding [place] Contraceptive management acu te [facility] Work Phone: Family History No Family History Records Found Relationship Condition Age at Onset Recorded Date/T doyle mother Malignant neoplasm of colon Unknown father Malignant neoplasm of colon Unknown grandmother Malignant neoplasm of colon Unknown grandfather Cerebrovascular accident (CVA) Unknown Advance Directives No Advanced Directives Records Found Advance Directive Response Recorded Date/ Time Living Will No November 08 9:17am Power of Regional Safety Manager No November 08, 2019 9:17am Chief Complaint and Reason for Visit Chief Complaint ENLARGE UTERUS Chief Complaint metromenorrhagia con sult, ref from Dr Samuel EMB/IUD INSERTION, 10 min ok per sm Reason for Visit Abnormal uterine ble eding Diabetes mellitus screening Abnormal uterine bleeding Contraceptive management Chief Complaint metromenorrhagia con sult, ref from Dr Samuel EMB/IUD INSERTION, 10 min ok per sm SCREENING Reason for Visit Abnormal uterine ble eding Diabetes mellitus screening Abnormal uterine bleeding Contraceptive management Chief Complaint metromenorrhagia con sult, ref from Dr Samuel EMB/IUD INSERTION, 10 min ok per sm SCREENING 6 wk f/u IUD/AUB/needs PAP Reason for Visit Abnormal uterine ble eding Diabetes mellitus screening Abnormal uterine bleeding Contraceptive management Abnormal uterine bleeding Contraceptive management Summary Purpose Additional Source Comments Goals (unrecognized section and content) Goals may be documented in a n alternate sectionGoals may be documented in an alternate sectionGoals may be documented in an alternate sectionGoals may be documented in an alternate sectionGoals may be documented in an alternate section Source Comments (unrecognize d section and content) In the event this informatio n is protected by the Federal Confidentiality of Alcohol and Drug Abuse Patient Records regulations: The Federal rules restrict any use of the information to criminally investigate or prosecute any alcohol or drug abuse patient.[facility] the event this information is protected by the Federal Confidentiality of Alcohol and Drug Abuse Patient Records regulations: The Federal rules restrict any use of the information to criminally investigate or prosecute any alcohol or drug abuse patient.[facility] Care Teams (unrecognized sec tion and content) Recruiter Coordinator Relationship Specialty Start Date End Date Dhaval Sandoval, DO [address] [place] [address] PCP - General Family Practice 10/27/12 Recruiter Coordinator Relationship Specialty Start Date End Date Dhaval Sandoval, DO [address] [place], [place] [id number] PCP - General Family Practice 10/27/12 Team Status: Active Member Role Status Dates Dr. Seth Resendiz MD Family Provider Active Dr. India Samuel MD Primary Care Provider Active Team Status: Inactive Member Role Status Dates Dr. Seth Resendiz MD Primary Care Provider, Referring Provider Active Dr. Danna Wood MD Attending Provider Active Team Status: Inactive Member Role Status Dates Dr. Seth Resendiz MD Referring Provider Active Dr. Danna Wood MD Attending Provider Active Dr. India Samuel MD Primary Care Provider Active Team Status: Inactive Member Role Status Dates Dr. India Samuel MD Primary Care Prov ider, Attending Provider, Referring Provider Active Team Status: Inactive Member Role Status Dates Dr. India Samuel MD Primary Care Provider Active Dr. Danna Wood MD Attending Provider Active Team Status: Inactive Member Role Status Dates Dr. India Samuel MD Primary Care Provider, Referrin g Provider Active Dr. Almaz Mejía DO Attending Provider Ivelisse rene Team Status: Inactive Member Role Status Dates Dr. India Samuel MD Primary Care Provider Active Dr. Almaz Mejía DO Attending Provider Ivelisse rene INFORMATION SOURCE (unrecogn ized section and content) DATE CREATED AUTHOR 05/01/2022 [facility] DATE CREATED AUTHOR AUTHOR'S ORGANIZ ATION 08/16/2025 [facility] FOR RECORDS PERTAINING TO PATIENTS WHO ARE [...] BE BASED ON THE PRIMARY CLINICAL RECORDS. [employer] provides no warranty or guarantee of the accuracy or completeness of information in this document.
[2025-10-02] MEDS: Lactated Ringers 1,000 ML 15 ML IV (06:23)
--- NOTE | 2025-10-02 06:41 | PRE.ANES_ITS ---
ASA Classification* ASA Classification ASA Classification: 2 Assessment & Plan Anesthesia* Anesthesia Assessment Anesthesia Assessment: Discussed sedation and/or anesthesia options, risks, benefits, and alternatives with patient/parents/legal guardian/POA. Questions invited. The patient/parents/legal guardian/POA seems to understand and agrees to proceed with anesthesia plan. Reviewed the physical assessment, medical history, allergy history and patient home medications list prior to surgery/procedure/anesthetic and documented any changes. Performed airway and anesthesia risk assessments. Anesthesia Type Anesthesia Type: MAC Anesthesia Focused Assessment* Temperature: 97.2 F Pulse Rate: 83 Blood Pressure: 149/74 Respiratory Rate: 16 Pulse Ox: 97 Airway Assessment Mouth opens: >3 cm Mallampati Score: II Labs Anesthesia Preop lab: CBC WBC, (4.4-11.0) 7.9 K/mm3 08/02/25, 09:49 RBC, (4.2-5.4) 5.14 M/mm3 08/02/25, 09:49 Hgb, (12.0-15.0) 14.7 g/dL 08/02/25, 09:49 Hct, (37-47) 42.5 % 08/02/25, 09:49 Plt Count, (150-450) 322 K/mm3 08/02/25, 09:49 CHEMISTRY Potassium, (3.3-5.1) 4.2 mmol/L 08/02/25, 09:49 Sodium, (133-145) 137 mmol/L 08/02/25, 09:49 BUN, (4-19) 11 mg/dL 08/02/25, 09:49 Creatinine, (0.70-1.20) 0.65 mg/dL L 08/02/25, 09:49 Glucose, (70-99) 144 mg/dL H 08/02/25, 09:49 TSH, (0.358-3.74) 1.24 uIU/mL 03/23/23, 08:42 COAG Pre-Assessment Diagnosis/Proposed Procedure Planned Operative Procedure(s): COLONOSCOPY-OA Anesthesia History Anesthesia History - prop and scenery maker: Anesthesia History - prop and scenery maker Hx Hospitalization No 09/27/25 14:31 Any Problems With Anesthesia Yes: N&V 09/27/25 14:31 Cholinesterase deficiency No 09/27/25 14:31 You/Your Family Experience No 09/27/25 14:31 fever (hyperthermia) with Relationship Recent Exposure to Contagious No 11/11/19 07:30 Disease Does patient have nerve No 09/27/25 14:31 stimulator Patient instructed to have device shut off --Does patient have Pacemaker No 10/02/25 06:13 or ICD? When Was Last Pacemaker Check QUESTION #4 FULL TEXT: You/Your Family Experience fever (hyperthermia) with Anesthesia Last Oral Intake Last Oral intake: Last Oral Intake NPO since 04:00 10/02/25 06:13 Meds taken in AM with sips of No 10/02/25 06:13 water? Meds patient instructed to take am of surgery PONV PONV - prop and scenery maker: PONV - prop and scenery maker Female Yes 09/27/25 14:31 HX of Motion Sickness No 09/27/25 14:31 HX of N/V After Surgery Yes 09/27/25 14:31 Non-Smoker Yes 09/27/25 14:31 Duration of Surgery greater No 09/27/25 14:31 than 60 minutes Number of Risk Factors 3 09/27/25 14:31 PONV Score Moderate Risk 09/27/25 14:31 Height & Weight Height & Weight: Anesthesia: Height & Weight Height 5 ft 7 in 10/02/25 06:13 Weight: 108.5 kg 10/02/25 06:13 Body Mass Index (BMI) 37.4 10/02/25 06:13 Respiratory Assessment Respiratory Assessment - prop and scenery maker: Respiratory Tract Infection Hx - prop and scenery maker Hx Respiratory Tract Infection No 09/27/25 14:31 STOP Sleep Apnea STOP Sleep Apnea - prop and scenery maker: STOP Sleep Apnea - prop and scenery maker Hx Hypertension No 09/27/25 14:31 Hx Sleep Apnea No 09/27/25 14:31 CPAP No 09/27/25 14:31 BIPAP Do you snore loudly (louder No 09/27/25 14:31 than talking or can be heard Do you often feel tired/ No 09/27/25 14:31 fatigued/ sleepy during daytime? Has anyone observed you stop No 09/27/25 14:31 breathing during sleep? STOP Results Negative 09/27/25 14:31 QUESTION #5 FULL TEXT : Do you snore loudly (louder than talking or can be heard through closed doors)? Tobacco Use History Tobacco Use History - prop and scenery maker: Tobacco Use History - prop and scenery maker Tobacco Use Smoking Status Never smoker 09/27/25 14:31 Hx Tobacco Use No 09/27/25 14:31 Years Smoking Packs Smoked per Day Smoking Cessation Date was within the last 15 years Hx Smoking Cessation Date Hx Smoking Cessation Counseling Hematologic Medial History Hematologic Hx - prop and scenery maker: Hematologic Medical Hx - waitstaff captain Hx of Blood Transfusion No 09/27/25 14:31 Hx of Transfusion in last 3 No 09/27/25 14:31 Months Date of Last Transfusion (if within last 3 months) Ever experience any problems No 09/27/25 14:31 with transfusion(s)? Specify any problems Hx of Preganancy in last 3 No 09/27/25 14:31 Months Nurse Filling Out Transfusion VCHRISTIN 09/27/25 14:31 & Questions: Date: 09/27/25 09/27/25 14:31 Time: 14:32 09/27/25 14:31 Patient unable to answer at this time (ie. confused, unrespo /Reproduction History /Reproductive History - prop and scenery maker: /Reproductive Hx- prop and scenery maker Hx Now No 09/27/25 14:31 Gestational Age (in weeks): EDC: Hx Hx Para Hx Section SAB No 09/27/25 14:31 Does the father of the baby or his family experience fever w Father of the baby Malignant Hypertension history comment Active Medications Active Medications: Current Medications Generic Name Dose Route Start Last Admin Trade Name Freq PRN Reason Stop Dose Admin Lactated Ringer's 1,000 mls @ 15 mls/hr 10/02/25 06:15 10/02/25 06:23 IV 15 mls/hr .Q48H APPLE Administration PFSH Medical History Wears glasses Post-menopausal Diabetes Migraine headache Non-smoker Chronic cough Contraceptive management Elevated blood-pressure reading without diagnosis of hypertension Family history of colon cancer in father Family history of colon cancer in mother Personal history of colonic polyps Hemorrhoid Constipation Diarrhea Rectal bleeding Family history of colon cancer Home Medications ?Medication ?Instructions ?Recorded ?Last Taken ?Type rizatriptan 10 mg tablet See Rx Instructions PO .COMP STELLA 03/30/23 Unknown History sodium sul 1.479 gram-potas ch See Rx Instructions PO PER PKG DIR 09/21/25 Unknown Rx 0.188 gram-magnes sul 0.225 gram #24 tabs tablet (Sutab) tirzepatide 5 mg/0.5 mL 5 mg subcut QWEEK 09/27/25 1 11/25/24 History subcutaneous pen injector (Mounjaro) Allergy/AdvReac Type Severity Reaction Status Date / Time No Known Allergies Allergy Verified 10/02/25 06:12 Family History Mother Colon cancer Father Colon cancer Grandmother Colon cancer Grandfather CVA (cerebral vascular accident) Surgical History Hx of surgical procedure History of bilateral tubal ligation Hx of bilateral salpingectomy History of colonoscopy (~09/22/14) History of Social History Smoking Status: Never smoker alcohol intake: current alcohol intake frequency: a few times a month substance use type: does not use Review of Systems (Anesthesia) ROS Narrative System reviewed and no additional complaints, except as documented.
--- NOTE | 2025-10-02 06:42 | HP.PCM_ITS ---
HPI - General General Date of Admission: 10/02/25 Date of Service: 10/02/25 Chief Complaint: Surveillance colonoscopy and family history of colon cancer HPI Narrative WHIT ESTRADA, is a 55 F who presents [Chief Complaint: c-scope consult Colonoscopy 11/11/19:- Preparation of the colon was fair. - Anterior Anal fissure seemingly healed with some scar tissue, no bleeding Internal hemorrhoids that prolapse with straining, but spontaneously regress to the resting position (Grade II) found on digital rectal exam. - The entire examined colon is normal. - No specimens collected. Patient referred from open access due to need for Sutab bowel prep. Patient's last colonoscopy was in 2019 with recommendation to repeat in 5 years. She has family history of colon cancer in her mother and father. She is unsure of their ages when they were diagnosed. Patient has had loose stool for as long as she can remember. She takes Imodium as needed. ] [facility] Medical History Wears glasses Post-menopausal Diabetes Migraine headache Non-smoker Chronic cough Contraceptive management Elevated blood-pressure reading without diagnosis of hypertension Family history of colon cancer in father Family history of colon cancer in mother Personal history of colonic polyps Hemorrhoid Constipation Diarrhea Rectal bleeding Family history of colon cancer Home Medications ?Medication ?Instructions ?Recorded ?Last Taken ?Type rizatriptan 10 mg tablet See Rx Instructions PO .COMP STELLA 03/30/23 Unknown History sodium sul 1.479 gram-potas ch See Rx Instructions PO PER PKG DIR 09/21/25 Unknown Rx 0.188 gram-magnes sul 0.225 gram #24 tabs tablet (Sutab) tirzepatide 5 mg/0.5 mL 5 mg subcut QWEEK 09/27/25 1 11/25/24 History subcutaneous pen injector (Mounjaro) Allergy/AdvReac Type Severity Reaction Status Date / Time No Known Allergies Allergy Verified 10/02/25 06:12 Family History Mother Colon cancer Father Colon cancer Grandmother Colon cancer Grandfather CVA (cerebral vascular accident) Surgical History Hx of surgical procedure History of bilateral tubal ligation Hx of bilateral salpingectomy History of colonoscopy (~09/22/14) History of Social History Smoking Status: Never smoker alcohol intake: current alcohol intake frequency: a few times a month substance use type: does not use ROS Constitutional Constitutional: Denies fatigue, fever(s), poor appetite, weight gain or weight loss Gastrointestinal Gastrointestinal: Denies belching, bloating, change in bowel habits, change in stool character, chewing difficulty, coffee ground emesis, constipation, cramping, diarrhea, dyspepsia, dysphagia, early satiety, excessive flatus, fecal incontinence, heartburn, hematemesis, hematochezia, hemorrhoids, loose stools, melena, nausea, odynophagia, rectal bleeding, tenesmus, vomiting or weight changes Patient's Goals Of Care . What would you like to achieve or improve as a result of your hospital stay?: none Vital Signs Vital Signs Vital Signs: 10/02/25 06:13 10/02/25 06:13 10/02/25 06:13 Temperature 97.2 F L Temperature Source Temporal Pulse Rate 83 Respiratory Rate 16 Respiratory Pattern Normal Blood Pressure 149/74 H Blood Pressure Mean 99 Blood Pressure Source Monitor Blood Pressure Position Semi-Fowlers Blood Pressure Location Right Arm Baseline BP 149/74 Pulse Ox 97 Oxygen Delivery Method Room Air Weight Weight: 239 lb 3.225 oz Body Mass Index (BMI) 37.4 Physical Exam Const alert, oriented x3, no apparent distress and healthy appearing General Appearance: cooperative GI normal to inspection, nondistended, normoactive bowel sounds, soft to palpation, non-tender and non-distended Percussion: normal to percussion Rectal Exam: deferred Assessment & Plan Assessment/Plan (1) Family history of colon cancer in father: (2) Family history of colon cancer in mother: (3) Personal history of colonic polyps: PLAN: Plan Assessment and Plan Assessment and Plan (1) Family history of colon cancer in father: Status: Acute Plan: Whit is a 56-year-old female patient with largely unremarkable past medical history here today for screening colonoscopy. Patient was scheduled for open access colonoscopy however requesting Sutab preparation which was unable to be prescribed without an appointment. Patient's last colonoscopy was in 2020 with an anal fissure but no other abnormalities. She has had colonic polyps in the past. She has a family history of colon cancer in both her mother and father. Patient also noting a long history of loose stool. She takes Imodium as needed. Patient was prescribed Sutab and will proceed with colonoscopy. - Colonoscopy - Follow-up as needed Note: Portions of this note may have been selectively carried forward from previous documentation to ensure continuity and accuracy of the clinical record. All imported information has been reviewed and updated as necessary to reflect the current patient status, findings, and clinical decision-making for this encounter. [employer] speech recognition traveling passenger agent software was used to create portions of this document. Sound alike and misspelled words, as well as other traveling passenger agent errors may be contained in the documentation. Medications: New sod sulf-pot chloride-mag sulf 1.479-0.188- 0.225 gram (Sutab) PO PER PKG DIR 24 tabs 0RF
--- NOTE | 2025-10-02 07:00 | COLBX_PTH ---
PATIENT: ALEXADNRO ESTRADA LOC: EN U#:[id number] AGE/SX: 55/F ROOM: RE10/02/[address]: Dr. Hong Isbell DO : 1970 BED: DIS: 10/02/2025 SPEC #: [id number] RECD: 10/02/25 09:42 STATUS: RADHA ABDULLAHI #: [id number] RIOS: 10/02/25 07:[address]: Hong Isbell DEPT: SURGICAL PATHOLOGY RECD BY: Ronal Manriquez ENTERED: 10/02/25 10:35 SP TYPE: COLON BX LIO DR: Dr. India Samuel MD Tissues: A - COLON BIOPSY B - Transverse colon Procedures: Surgery Specimen Level IV HEADER OPERATION: Colonoscopy - open access PRE-OP DIAGNOSIS: Screening TISSUE SUBMITTED: A. Hepatic flexure polyp biopsy, B. Transverse colon polyp biopsy MICROSCOPIC DIAGNOSIS A. Colon, hepatic flexure, polyp, biopsy: - Tubular adenoma. B. Colon, transverse, polyp, biopsy: - Tubular adenoma. MICROSCOPIC DESCRIPTION Slides are reviewed. GROSS DESCRIPTION A. Received is one container labeled with the patient name and designated hepatic flexure polyp biopsy. The specimen consists of multiple irregular fragments of cameron tissue that measure 1.0 x 0.4 x 0.1 cm. The specimen is totally submitted in one cassette. B. Received is one container labeled with the patient name and designated Transverse colon polyp biopsy. The specimen consists of one irregular fragment of cameron tissue that measures 0.2cm. The specimen is totally submitted in one cassette. [place] 10/02/2025 CPT:57138g9
--- NOTE | 2025-10-02 07:48 | OP.PROVAT_ITS ---
10/02/2025 India Samuel [place] [id number] [address] Re : Colonoscopy procedure for Whit Jon Dear Dr. Samuel This procedure was performed on Thursday, October 02, 2025. My impressions and recommendations are as follows: Impressions : - Two 10 mm polyps in the transverse colon and at the hepatic flexure, removed with a hot snare. Resected and retrieved. - Diverticulosis in the recto-sigmoid colon and in the sigmoid colon. Recommendations : - Discharge patient to home. - Resume previous diet. - Continue present medications. - Await pathology results. - Repeat colonoscopy in 5 years for surveillance. My findings are described in the full procedure note, which is enclosed. If I can be of further assistance, please feel free to contact me at . Sincerely, Hong Isbell, 10/02/2025 7:47:37 AM This report has been signed electronically.
--- NOTE | 2025-10-02 07:48 | OP.COLON_ITS ---
Patient Name: Whit Jon Procedure Date: 10/02/2025 7:17 AM Date of : 1970 Age: 55 Procedure: Colonoscopy Indications: High risk colon cancer surveillance: Personal history of colonic polyps, Family history of colon cancer in multiple first-degree relatives Providers: Hong Isbell DO Referring MD: India Samuel Medicines: Monitored Anesthesia Care Patient Profile: This is a 55 year old female. Refer to note in patient chart for documentation of history and physical. Last Colonoscopy: 5 years ago. Complications: No immediate complications. Procedure: Pre-Anesthesia Assessment: - Prior to the procedure, a History and Physical was performed, and patient medications and allergies were reviewed. The patient is competent. The risks and benefits of the procedure and the sedation options and risks were discussed with the patient. All questions were answered and informed consent was obtained. Patient identification and proposed procedure were verified by the physician in the pre-procedure area. Mental Status Examination: alert and oriented. Airway Examination: normal oropharyngeal airway and neck mobility. Respiratory Examination: clear to auscultation. CV Examination: normal. Prophylactic Antibiotics: The patient does not require prophylactic antibiotics. Prior Anticoagulants: The patient has taken no anticoagulant or antiplatelet agents except for NSAID medication. ASA Grade Assessment: II - A patient with mild systemic disease. After reviewing the risks and benefits, the patient was deemed in satisfactory condition to undergo the procedure. The anesthesia plan was to use monitored anesthesia care (MAC). Immediately prior to administration of medications, the patient was re-assessed for adequacy to receive sedatives. The heart rate, respiratory rate, oxygen saturations, blood pressure, adequacy of pulmonary ventilation, and response to care were monitored throughout the procedure. The physical status of the patient was re-assessed after the procedure. After I obtained informed consent, the scope was passed under direct vision. Throughout the procedure, the patient's blood pressure, pulse, and oxygen saturations were monitored continuously. The colonoscope was introduced through the anus and advanced to the cecum, identified by appendiceal orifice and ileocecal valve. The colonoscopy was performed without difficulty. The patient tolerated the procedure well. The quality of the bowel preparation was adequate. The ileocecal valve, appendiceal orifice, and rectum were photographed. Scope In: 7:27:45 AM Scope Withdrawal Time 0 hours 9 minutes 21 seconds Scope Out: 7:39:13 AM Total Procedure Duration Time 0 hours 11 minutes 28 seconds Findings: The perianal and digital rectal examinations were normal. Two sessile polyps were found in the transverse colon and hepatic flexure. The polyps were 10 mm in size. These polyps were removed with a hot snare. Resection and retrieval were complete. Verification of patient identification for the specimen was done. Estimated blood loss was minimal. Multiple small and large-mouthed diverticula were found in the recto-sigmoid colon and sigmoid colon. Impression: - Two 10 mm polyps in the transverse colon and at the hepatic flexure, removed with a hot snare. Resected and retrieved. - Diverticulosis in the recto-sigmoid colon and in the sigmoid colon. Recommendation: - Discharge patient to home. - Resume previous diet. - Continue present medications. - Await pathology results. - Repeat colonoscopy in 5 years for surveillance. Procedure Code(s): --- Professional --- 31435, Colonoscopy, flexible; with removal of tumor(s), polyp(s), or other lesion(s) by snare technique CPT copyright 2021 [employer]. All rights reserved. The codes documented in this report are preliminary and upon plant safety leader review may be revised to meet current compliance requirements. Hong Isbell DO 10/02/2025 7:47:37 AM This report has been signed electronically. Number of Addenda: 0 Note Initiated On: 10/02/2025 7:17 AM
--- NOTE | 2025-10-02 07:50 | PCM.POST.ANE ---
Anesthesia: Postop Eval I Current Vital Signs Temperature: 97.4 F Pulse Rate: 88 Blood Pressure: 111/58 Respiratory Rate: 16 Pulse Ox: 98 Oxygen Delivery Method: Room Air Assessment Airway patent: Yes Spontaneous unlabored respirations: Yes Mental status: Awake and Calm nausea: No Vomiting: No Anesthesia Complication: No Fluid Hydration Crystalloid volume administer (ml): 500 Total IV fluid infused: 500 Progress Note Anesthesia document: Postop Eval 1 completed: Yes
--- NOTE | 2025-10-02 08:33 | PCM.POSTANE2 ---
Anesthesia Postop Eval I Sum Postop Eval Completion status Anesthesia document: Postop Eval 1 completed: Yes Anesthesia Postop Eval I Summary Anesthesia Postop Eval I Summary: Anesthesia Postop Eval I: Assessment Summary Airway patent Yes 10/02/25 07:51 [email or web address] Spontaneous unlabored Yes 10/02/25 07:51 [email or web address] respirations Mental status Awake,Calm 10/02/25 07:51 [email or web address] nausea No 10/02/25 07:51 [email or web address] Vomiting No 10/02/25 07:51 [email or web address] Anesthesia Postop Eval I: Fluid Summary Crystalloid volume administer 500 10/02/25 07:51 [email or web address] (ml) Colloids volume administered ( ml) Blood Product volume administered (ml) Total IV fluid infused 500 10/02/25 07:51 [email or web address] Anesthesia Postop Eval I: Summary Notes Anesthesia Complication No 10/02/25 07:51 [email or web address] Anesthesia Complication Comment: Post-operative progress note Anesthesia: Postop Eval II Evaluation Mental status: Awake Pain Level: 0 nausea: No Vomiting: No
== END 2025-10-02 08:32 | disposition home or self-care (01) ==
LOC: EN 05:55 → AC 05:56
PROVIDERS: PCP Family Medicine; Referring Provider Family Medicine; Visit Provider Internal Medicine Gastroenterology
PROC: 0DJD8ZZ Inspection of Lower Intestinal Tract, Via Natural or Artificial Opening Endoscopic (ICD-10-PCS; CPT 45378; principal; 2025-10-02 06:55)
DX: Z12.11 Encounter for screening for malignant neoplasm of colon (principal); E11.9 Type 2 diabetes mellitus without complications; K57.30 Diverticulosis of large intestine without perforation or abscess without bleeding; Z79.85 Long-term (current) use of injectable non-insulin antidiabetic drugs; Z86.0100 Personal history of colon polyps, unspecified; Z80.0 Family history of malignant neoplasm of digestive organs; Z87.19 Personal history of other diseases of the digestive system; D12.3 Benign neoplasm of transverse colon
CPT/HCPCS: 45385; 82962; 88305; J2405